=== PATIENT | male | born 1980 | race Caucasian/White ===

== ENCOUNTER 2021-05-23 17:19 | Emergency (ER) | payer SELFPAY ==
[2021-05-23 17:26] VITALS: BP 148/79; PULSE 73; RESP 20; TEMP 36.4; O2SAT 98; BMI 40.4
[2021-05-23 21:56] VITALS: BP 139/83; PULSE 63; RESP 17; O2SAT 98
--- NOTE | 2021-05-23 22:19 | ED.ALLEREA ---
HPI - Allergic Reaction General Chief complaint: Allergic Reaction Stated complaint: rash Time Seen by Provider: 05/23/21 22:19 Source: patient Mode of arrival: ambulatory Limitations: no limitations History of Present Illness HPI narrative: 40-year-old male who work outside and wear multiple layers of clothes which will get hot and sweaty becoming very itching, patient otherwise decline any change in his daily routine, no breathing issue, no change of voice, now there is no itching or rashes. No known history of eczema however runs in the family. no sick contact, no recent travel. Related Data Previous Rx's Medication Instructions Recorded prednisone 10 mg tablet 10 mg PO DAILY #7 tab 05/23/21 Allergies Allergy/AdvReac Type Severity Reaction Status Date / Time No Known Allergies Allergy Verified 05/23/21 22:19 Review of Systems Review of Systems: All other systems are reviewed and are negative Constitutional: Reports as per HPI and Reports no additional constitutional complaints Eyes: Reports as per HPI and Reports no additional eye complaints Reports system reviewed and no additional complaints, except as documented Cardiovascular: Reports as per HPI and Reports no additional cardiovascular complaints Respiratory: Reports as per HPI and Reports no additional respiratory complaints Gastrointestinal: Reports as per HPI and Reports no additional gastrointestinal complaints Genitourinary: Reports no additional female genitourinary complaints Musculoskeletal: Reports no additional musculoskeletal complaints Skin/Breast: Reports system reviewed and no additional complaints, except as docu Psychiatric: Reports no additional psychiatric complaints Endocrine: Reports no additional endocrine complaints Hematologic/Lymphatic: Reports no additional hematologic/lymphatic complaints Allergic/Immunologic: Reports no additional allergic/immunologic complaints Reports system reviewed and no additional complaints, except as documented and Reports Abnormal speech present [facility] Social History Social History Advance Directives: No Advance Directives Information Provided: No Physical Exam Vital Signs: Vital Signs: Last Vital Signs Temp 97.5 F 05/23/21 17:26 Pulse 63 05/23/21 21:56 Resp 17 05/23/21 21:56 BP 139/83 05/23/21 21:56 Pulse Ox 98 05/23/21 21:56 BMI result Body Mass Index 40.4 vital signs have been reviewed as appeared to be correct. Blood pressure normal. Heart rate normal. Respiration rate normal. Temperature normal. Oxygen saturation normal. Appearance: Alert. Oriented X3. No acute distress. Head: Normal external exam. Normocephalic. Atraumatic. No Aden signs noted. No raccoon eyes noted Eyes: PERRLA. EOMI. Conjunctiva and sclera normal. Eyelids normal. ENT: TM's Normal. Pharynx normal. Uvula midline. Moist mucous membranes. No trismus noted. No drooling noted. No muffled voice noted. Neck: Normal inspection. Neck supple. FROM. No adenopathy. Thyroid Normal. No meningeal signs. No neck mass noted. CVS: Normal heart rate and rhythm. Heart sound normal. No murmurs noted. Pulses normal throughout. Respiratory: No respiratory distress. Painless inspiration. Breath sounds normal. No wheezes/rales/rhonchi noted. Chest nontender. No accessory muscle usage noted or decreased air movement noted. Abdomen: Soft and nontender. Bowel sounds normal in all 4 quadrants. No distention noted. No organomegaly noted. No visible injury noted. Back: No CVA tenderness. Full range of motion noted. Skin: Skin warm and dry. Normal skin color. Normal skin turgor. No rashes/lesions/lacerations noted. Extremities: Fine, dry, multiple rashes on extensor surface of bilateral forearm Mostly around the extensor surface of the elbow. Neuro: Oriented X 3. Cranial nerve exam: II-XII are grossly intact No motor deficit. No sensory deficit. Reflexes normal. Course Course Course Narrative: Assessment and plan. 40-year-old male presented with itching and rashes exacerbated by heat and swelling, exam is consistent with mild eczema, will start the patient on very short course of steroid and have the patient follow-up with PCP and Dermatology. Patient used Calamine lotion [id number] which improved the patient's symptoms. Discharge Plan Discharge Clinical Impression: Contact dermatitis Qualifiers: Contact dermatitis type: irritant Contact dermatitis trigger: body fluid Patient Disposition: Home, Self-Care Instructions: Contact Dermatitis (ED) Prescriptions: New prednisone 10 mg tablet 10 mg PO DAILY Qty: 7 RF: 0 Referrals: Physician,Unknown J [Primary Care Provider] - 2 days Stand Alone Forms: Work/School Release
== END 2021-05-23 22:39 | disposition home or self-care (01) ==
PROVIDERS: Emergency Provider Emergency Medicine
DX: L24.A0 Irritant contact dermatitis due to friction or contact with body fluids, unspecified (principal)
CPT/HCPCS: 99283; 99284

== ENCOUNTER 2021-05-28 00:39 | Emergency (ER) | payer OTHER, SELFPAY ==
--- NOTE | 2021-05-28 01:00 | ED_ITS ---
HPI - Dental/Oral General Stated complaint: Dental Pain Source: patient Mode of arrival: ambulatory Limitations: no limitations History of Present Illness HPI Narrative: 40-year-old male presents with days of dental pain. Has not seen a dentist on a regular basis, has multiple caries and broken teeth. Does not report any fevers or chills, is able to eat and drink without difficulty. MD Complaint: tooth pain Teeth map: 1. 2. 3. 4. Onset (ago): day(s) Duration: constant Severity: moderate Severity scale (1-10): 6 Relieving factors: nothing Exacerbating factors: chewing, cold and heat Context: history of dental caries and poor dental care Associated symptoms: gum swelling Treatment prior to arrival: topical analgesic Related Data Previous Rx's Medication Instructions Recorded prednisone 10 mg tablet 10 mg PO DAILY #7 tab 05/23/21 amoxicillin 875 mg-potassium 1 tab PO Q12H 10 Days #20 tab 05/28/21 clavulanate 125 mg tablet (Augmentin) Allergies Allergy/AdvReac Type Severity Reaction Status Date / Time No Known Allergies Allergy Verified 05/23/21 22:19 Review of Systems Review of Systems: Constitutional: No Fever, No Chills ENT/Mouth: No swallowing difficulty, no change in voice, positive dental pain, positive jaw pain, no facial swelling Eyes: No Eye Pain, No Swelling Cardiovascular: No Chest Pain, No SOB Respiratory: No Cough, No Sputum, No Wheezing, No Smoke Exposure, No Dyspnea Gastrointestinal: No Nausea, No Vomiting, No Diarrhea Genitourinary: No Dysuria Musculoskeletal: No Myalgias Skin: No rash Neuro: No Weakness, No Numbness, No Headache Yes all other systems are reviewed and are negative [facility] Past Medical History Attestation statement: The following information was validated with the patient. Source: old records reviewed Social History Social History Advance Directives: No Advance Directives Information Provided: No Physical Exam Vital Signs: Appearance: Alert. Oriented X3. Mild distress. Eyes: Pupils equal, round and reactive to light. ENT: Pharynx normal. Multiple dental caries and broken teeth throughout. Poor dentition, gingivitis noted at multiple sites. Neck: Normal inspection. Neck supple. No cervical lymphadenopathy. No nuchal rigidity. Full range of motion. CVS: Normal heart rate and rhythm. Pulses normal. Respiratory: No respiratory distress. Breath sounds normal. Abdomen: Soft and nontender. Skin: Skin warm and dry. Normal skin color. Normal skin turgor. Extremities: No lower extremity edema. Gait well-balanced well coordinated. Neuro: No motor deficit. No sensory deficit. Cranial nerves 2-12 intact Course Course Course Narrative: 40-year-old male presents with dental pain. Multiple broken teeth, caries, and areas of gingivitis. Will give Augmentin and injection of Toradol for pain management. Patient was advised to continue to use topical analgesic as well as Tylenol and Motrin. Patient is afebrile, appears nontoxic, lung sounds clear to auscultation all lobes. Able to open and close his mouth difficulty. No cervical adenopathy. No mastoid tenderness noted. Will refer to emergency dental numbers, provide prescription and 1st dose of Augmentin. Patient verbalized understanding of and agrees to plan of care discharge home. MDM - Dental/Oral Differential Diagnosis Differential diagnosis: Likely gingival abscess, dental caries, toothache, dental abscess and fracture of tooth Medical Records Attestation: I reviewed the patient's medical records. Discharge Plan Discharge Clinical Impression: Dental caries, Tooth ache Patient Disposition: Home, Self-Care Instructions: Dental Abscess (ED), Toothache (ED) Additional Instructions: You were evaluated for dental pain. Please take Augmentin twice a day for the next 10 days. Alternate Tylenol 650 mg every 6 hours and Motrin 600 mg every 6 hours as needed for pain management. Please write down what time he take these medications to prevent accidental overdose. Please follow-up with a dentist. Thank you for choosing this emergency department for evaluation. Please follow-up with primary care physician as needed. Return to the emergency department for any new, concerning, or worsening symptoms. Prescriptions: New amoxicillin-pot clavulanate [Augmentin] 875-125 mg tablet 1 tab PO Q12H 10 Days Qty: 20 RF: 0 No Action prednisone 10 mg tablet 10 mg PO DAILY Qty: 7 RF: 0 Stand Alone Forms: Dental Emergency Numbers
[2021-05-28 01:04] VITALS: PULSE 82; RESP 18; TEMP 37.2; O2SAT 96; BMI 19.5
== END 2021-05-28 01:25 | disposition home or self-care (01) ==
PROVIDERS: Emergency Provider Emergency Medicine
DX: K02.9 Dental caries, unspecified (principal)
CPT/HCPCS: 99283

== ENCOUNTER 2022-01-23 18:34 | Emergency (ER) | payer SELFPAY ==
--- NOTE | ~2022-01-23 | XR_ITS ---
EXAMINATION: XR KNEE, LEFT CLINICAL INFORMATION: Left knee pain COMPARISON: None TECHNIQUE: Two views of the left knee. FINDINGS: There are moderate tricompartmental degenerative changes. There is a small ossific fragment overlying the anterior tibial plateau in the midline. There is a suprapatellar joint effusion. XR/XR knee LT 2V IMPRESSION: Ossific fragment overlying the anterior tibial plateau may represent a small avulsion fracture or loose body. There is a suprapatellar joint effusion. Moderate tricompartmental degenerative change.
[2022-01-23 18:43] VITALS: BP 140/80; PULSE 92; RESP 18; TEMP 36.9; O2SAT 96; BMI 36.2
--- NOTE | 2022-01-23 19:57 | ED_ITS ---
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 The patient has had pain in his left leg for some time but in the last week he has had worsened pain in his left lateral leg radiating down to his left foot. Patient has noted a little swelling in his left knee as well as in his left foot. He has also had pruritus around his left lower thigh, left knee, and left lateral leg and notes he has a rash from scratching at it. Patient notes that his left leg pain is especially bad after he has been up on the ladder. He denies any chest pain or shortness of breath. He denies any posterior calf or knee pain. Denies any fever. The patient has tried ibuprofen and acetaminophen. He notes that the pain is sometimes severe and throbbing Related Data Previous Rx's Medication Instructions Recorded prednisone 10 mg tablet 10 mg PO DAILY #7 tabs 05/23/21 amoxicillin 875 mg-potassium 1 tab PO Q12H 10 days #20 tabs 05/28/21 clavulanate 125 mg tablet (Augmentin) prednisone 20 mg tablet 40 mg PO DAILY #10 tabs 01/23/22 tramadol 50 mg tablet 50 - 100 mg PO Q4H PRN pain #20 01/23/22 tabs triamcinolone acetonide 0.1 % 1 appl topical BID #80 grams 01/23/22 topical cream Allergies Allergy/AdvReac Type Severity Reaction Status Date / Time No Known Allergies Allergy Verified 01/23/22 18:43 Review of Systems Constitutional: Constitutional: Denies fever(s) Cardiovascular: Cardiovascular: Denies chest pain and Denies dyspnea Respiratory: Respiratory: Denies dyspnea Musculoskeletal: Comments: Left leg pain Integumentary/Breasts: Comments: Pruritus and rash left leg PMFSH Past Medical History Medical History (Updated 01/23/22 @ 20:22 by Price Escamilla MD) No known health problems Social History Social History Patient Tobacco Use Status: Current everyday Tobacco user Smoked in Last 30 Days: Yes Use of substances other than those prescribed or required for medical reasons: No Advance Directives: No Advance Directives Information Provided: No Physical Exam ED Vital Signs: Vital Signs - 24 hr 01/23/22 18:43 Temperature 98.4 F Pulse Rate 92 Respiratory Rate 18 Blood Pressure 140/80 H Pulse Oximetry 96 Oxygen Delivery Method Room Air BMI result Body Mass Index 36.2 Const General: cooperative Resp Effort & Inspection: normal respiratory effort Auscultation: clear to auscultation bilaterally Cardio Rate: regular rate Rhythm: regular rhythm Heart sounds: S1 normal heart sound present and S2 normal heart sound present Skin Other: Left thigh just above the knee with excoriations and some patchy erythema with irregular borders, not cellulitic appearing. Left lateral leg with similar excoriations, no erythema. Extrem Other: Left knee with mild prepatellar effusion. No calf tenderness or swelling. Left foot with borderline swelling. Left lateral leg from the knee down to the lateral ankle with mild tenderness Medical Decision Making MDM Narrative Medical decision making narrative: Patient with pruritus on his left leg only. Patient's noted that the patient had similar findings last summer and thought he had poison abdiaziz. Patient does have excoriations and some areas of mild blotchy erythema but no other concerning rash. Patient does have mild swelling to his left knee but no erythema or warmth to the knee. X-ray did show a small suprapatellar effusion. No evidence of infection. Patient likely has an inflammatory process or osteoarthritis related to repetitive use, may also have a component of neuropathy causing his left leg symptoms given his being on the ladder and leaning his leg against the ladder while at work. Will give orthopedic follow- up. Will prescribe prednisone, tramadol, work note. He may also benefit from a topical steroid in the area of his pruritus Imaging Data Left knee x-ray: Radiologist's impression: FINDINGS: There are moderate tricompartmental degenerative changes. There is a small ossific fragment overlying the anterior tibial plateau in the midline. There is a suprapatellar joint effusion.? Discharge Plan Discharge Clinical Impression: Eczema, Osteoarthritis Patient Disposition: Home, Self-Care Instructions: Osteoarthritis (ED), Dermatitis (ED) Additional Instructions: Use the prednisone as prescribed. Use the triamcinolone topical over the itchy areas and rash as prescribed. Use tramadol for any uncontrolled pain. Try to avoid working on the ladder for the next week and generally try to rest her left knee. Return for any new or worse symptoms. Follow up with orthopedics in 1-2 weeks if not improved Prescriptions: New prednisone 20 mg tablet 40 mg PO DAILY Qty: 10 0RF triamcinolone acetonide 0.1 % cream 1 appl topical BID Qty: 80 0RF tramadol 50 mg tablet 50 - 100 mg PO Q4H PRN (Reason: pain) Qty: 20 0RF No Action prednisone 10 mg tablet 10 mg PO DAILY Qty: 7 0RF amoxicillin-pot clavulanate [Augmentin] 875-125 mg tablet 1 tab PO Q12H 10 Days Qty: 20 0RF Referrals: Uriah Chawla MD [Physician] - Stand Alone Forms: Work/School Release Interventions: ED Discharge Assessment Last Done: 01/23/22 20:58 Discharge Date/Time: 01/23/22 21:03
[2022-01-23] MEDS: traMADoL HCL 50 MG TABLET 100 MG PO (20:50)
[2022-01-23] MEDS: predniSONE 20 MG TABLET 60 MG PO (20:52)
--- NOTE | 2022-01-23 20:57 | PC.NURSE ---
medicated per provider order.
== END 2022-01-23 21:03 | disposition home or self-care (01) ==
PROVIDERS: Emergency Provider Emergency Medicine
DX: L30.9 Dermatitis, unspecified (principal); M17.12 Unilateral primary osteoarthritis, left knee; M25.462 Effusion, left knee; M79.605 Pain in left leg; F17.200 Nicotine dependence, unspecified, uncomplicated
CPT/HCPCS: 73560; 99283; 99284

== ENCOUNTER 2022-02-12 08:42 | Emergency (ER) | payer SELFPAY ==
--- NOTE | ~2022-02-12 | US_ITS ---
EXAMINATION: US VENOUS ULTRASOUND WITH DOPPLER LOWER EXTREMITY, LEFT CLINICAL INFORMATION: Left leg/calf pain and swelling COMPARISON: None TECHNIQUE: Ultrasound of the deep veins is performed from the hip to the calf with compression sonography and color and pulse Doppler assessment. Spectral analysis with color-flow imaging is performed. FINDINGS: There is normal venous compression and respiratory variation and augmented flow. The visualized common femoral vein, superficial femoral vein, profunda femoral vein, popliteal vein, and the trifurcation region shows no evidence of deep venous thrombosis. There is no significant popliteal fossa cyst. Couple of small left inguinal lymph nodes are noted, measuring less than 1 cm in short axis dimension, not pathologically enlarged. If the patient's symptoms persist, followup ultrasound in 5 days 7 days might be of value to exclude proximal propagation from a non-visualized calf vein. US/US venous duplex LE IMPRESSION: No DVT demonstrated in the left lower extremity.
--- NOTE | ~2022-02-12 | XR_ITS ---
EXAMINATION: XR KNEE, LEFT CLINICAL INFORMATION: Persistent pain of the knee, tibia and fibula. COMPARISON: 01/23/2022 TECHNIQUE: Four views of the left knee. FINDINGS: No new abnormality compared to 01/23/2022. At the medial tibiofemoral compartment, there is [id number] loss of joint space with subarticular sclerosis, osteophytosis and genu varus deformity. Moderate osteoarthritic changes also observed at patellofemoral and lateral tibiofemoral compartments. Persistent moderate knee joint effusion. A 0.6 cm intra-articular ossific body projects deep to Hoffa's fat pad. XR/XR knee LT 4V IMPRESSION: * No acute fracture or malalignment at the left knee. * Tricompartmental osteoarthritis is worst at the medial tibiofemoral compartment, and there is persistent knee joint effusion.
[2022-02-12 09:52] VITALS: BP 143/55; PULSE 55; RESP 18; TEMP 36.8; O2SAT 99; BMI 39.4
--- NOTE | 2022-02-12 12:04 | ED.EXTPRO ---
HPI - Extremity Problem General Chief complaint: Extremity Injury, Lower Stated complaint: L leg pain Time Seen by Provider: 02/12/22 10:57 Source: patient and family Mode of arrival: ambulatory Limitations: no limitations History of Present Illness HPI Narrative: 41-year-old male who denies any medical history presenting to the ER with complaints of persistent left knee pain over the past few months worse in the past few days. Reports that he was seen here in was told I have osteoarthritis . Reports that he has been using [id number] Motrin Tylenol no symptomatic relief. Reports that he fell approximately like 10 years ago and injured his left knee. he denies any recent falls, trauma, dizziness, headaches, neck pain / stiffness, trouble swallowing or breathing, chest pain or shortness of breath, dyspnea on exertion, orthopnea, palpitations, paresthesias, lower extremity edema, recent travel or sick contacts, history of DVT or PE, hypercoagulation disorder, any estrogen usage, IV drug user, recent immobilization or surgery or any other symptoms complaints or concerns at this time. MD Complaint: joint pain Onset (ago): month(s) ( Few months worse in the past few days) Pain Consistency: constant Location: left, lower extremity and knee Severity scale (1-10): >10 Quality: aching and constant Radiation: distal Relieving factors: nothing Exacerbating factors: range of motion, weight bearing, walking and palpation Associated symptoms: denies other symptoms Related Data Previous Rx's Medication Instructions Recorded prednisone 10 mg tablet 10 mg PO DAILY #7 tabs 05/23/21 amoxicillin 875 mg-potassium 1 tab PO Q12H 10 days #20 tabs 05/28/21 clavulanate 125 mg tablet (Augmentin) prednisone 20 mg tablet 40 mg PO DAILY #10 tabs 01/23/22 tramadol 50 mg tablet 50 - 100 mg PO Q4H PRN pain #20 01/23/22 tabs triamcinolone acetonide 0.1 % 1 appl topical BID #80 grams 01/23/22 topical cream naproxen 500 mg tablet 500 mg PO BID PRN pain #14 tabs 02/12/22 oxycodone 5 mg tablet 5 mg PO Q6H PRN pain #14 tabs 02/12/22 prednisone 20 mg tablet 40 mg PO DAILY inflammation 5 days 02/12/22 #10 tabs Allergies Allergy/AdvReac Type Severity Reaction Status Date / Time No Known Allergies Allergy Verified 01/23/22 18:43 Review of Systems Review of Systems: Constitutional : No Weight loss, No Fever, No Chills, No Night Sweats, No Fatigue, No Malaise ENT/Mouth : No Hearing loss, No Ear Pain, No Nasal Congestion, No Sinus Pain, No Hoarseness, No sore throat, No Rhinorrhea, No Swallowing Difficulty Eyes: No Eye Pain, No Swelling, No Redness, No Foreign Body, No Discharge, No Vision Changes Cardiovascular : No Chest Pain, No SOB, No Dyspnea on Exertion, No Orthopnea, No Edema, No Palpitations Respiratory : No Cough, No Sputum, No Wheezing, No Smoke Exposure, No Dyspnea Gastrointestinal : No Nausea, No Vomiting, No Diarrhea, No Constipation, No abdominal Pain, No Hematochezia, No Melena Genitourinary : no irregular bleeding, No Dysuria, No Urinary Frequency, No Hematuria, No Urinary Incontinence, No Urgency, No Flank Pain, No Urinary Flow Changes, No Hesitancy Musculoskeletal : + joint pain, No Myalgias, No Joint Swelling Skin : No Skin Lesions, No rash Neuro : No Weakness, No Numbness, No Paresthesias, No Loss of Consciousness, No Dizziness, No Headache Psych : No Anxiety/Panic, No Depression, No SI/HI/AH/VH, No Social Issues, Heme/Lymph: No Bruising, No Bleeding,No Lymphadenopathy Endocrine : No Polyuria, No Polydipsia, No Temperature Intolerance Yes all other systems are reviewed and are negative [facility] Past Medical History Attestation statement: The following information was validated with the patient. Source: old records reviewed, obtained from family and nursing notes reviewed Medical History No known health problems Social History Social History Patient Tobacco Use Status: Current everyday Tobacco user Advance Directives: No Advance Directives Information Provided: No Physical Exam Vital Signs: Vital Signs: Last Vital Signs Temp 98.3 F 02/12/22 09:52 Pulse 55 02/12/22 09:52 Resp 18 02/12/22 09:52 BP 143/55 H 02/12/22 09:52 Pulse Ox 99 02/12/22 09:52 O2 Del Method 02/12/22 09:52 BMI result Body Mass Index 39.4 vital signs have been reviewed as normal and appeared to be correct. Blood pressure 143/55 Heart rate normal. Respiration rate normal. Temperature normal. Oxygen saturation normal. Appearance: Alert. Oriented X3. No acute distress. Head: Normal external exam. Normocephalic. Atraumatic. Eyes: PERRLA. EOMI. Conjunctiva and sclera normal. Eyelids normal. ENT: Pharynx normal. Uvula midline. Moist mucous membranes. Normal voice. No trismus noted. No drooling noted. No muffled voice noted. Neck: Normal inspection. Neck supple. FROM. No adenopathy. Thyroid Normal. No meningeal signs. No neck mass noted. No signs of trauma noted. CVS: Normal heart rate and rhythm. Heart sound normal. Pulses normal throughout. No murmurs/rales/gallops. Respiratory: No respiratory distress. Painless inspiration. Breath sounds normal. No wheezes/rales/rhonchi noted. No accessory muscle usage noted or decreased air movement noted. Abdomen: Soft and nontender. Nondistended. No guarding. No rigidity. Bowel sounds normal in all 4 quadrants. No distention noted. No organomegaly noted. Back: Full range of motion noted. Skin: Skin warm and dry. Normal skin color. Normal skin turgor. No rashes/lesions/lacerations noted. Extremities: patient with tenderness palpation to left knee/ proximal aspect of the tibia/fibula although he has full range of motion of the left knee/ hip and ankle and foot joint. No obvious ligamentous or tendon injury noted. Not consistent with septic joint. No erythema / signs infection/ fluctuance or induration noted. Although patient does have some left calf tenderness. Patient does not have any lower extremity edema noted. Otherwise all other extremities exhibit normal range of motion nontender. Neuro: Oriented X 3. No motor deficit. No sensory deficit. Reflexes normal. Normal steady gait. No focal neuro deficits noted. CN's II-XII intact bilaterally? Vascular: + radial pulses/+ 2 distal pedal pulses/+2 dorsalis pedis b/l. Normal cap refill. No cyanosis noted to upper extremity nails and lower extremity toes nails. Course Course Course Narrative: 11am - 41-year-old male who denies any medical history presenting to the ER with complaints of persistent left knee pain over the past few months worse in the past few days. Reports that he was seen here in was told I have osteoarthritis . Reports that he has been using [id number] Motrin Tylenol no symptomatic relief. Reports that he fell approximately like 10 years ago and injured his left knee. it appears when the patient was seen here on 01/23/2022 by another provider the impression on the left knee x-ray revealed ossified fragment overlying the anterior tibial plateau may represent a small avulsion fracture or loose body along with a suprapatellar joint effusion and moderate tricompartmental degenerative changes. Although patient was never told about the possible small avulsion fracture versus loose body he was told he only had arthritis per the note/discharge paperwork. Therefore will repeat x-ray of left knee and obtain an ultrasound of left lower extremity and re-evaluate. Reevaluation(s) Reevaluation #1: - X-ray of left knee revealed arthritis. Venous duplex ultrasound of left lower extremity negative for DVT or any other acute processes. Will DC home with symptomatic treatment is plane to the patient that if he returns he most likely will not have another prescription for narcotics that this is his 1st visit that he will get narcotics although I cannot promise the next visit and I explained him that he will need to follow-up with his PCP/ pain management for further evaluation treatment. Patient understands agrees with this plan. Time: 14:40 [facility] - Extremity (Nontraumatic) Medical Records Attestation: I reviewed the patient's medical records. Imaging Data Left knee x-ray: Attestation: I personally reviewed and interpreted this imaging study as follows: Venous duplex ultrasound of left lower extremity: Attestation: I personally reviewed and interpreted this imaging study as follows: Radiologist's impression: FINDINGS: There is normal venous compression and respiratory variation and augmented flow. The visualized common femoral vein, superficial femoral vein, profunda femoral vein, popliteal vein, and the trifurcation region shows no evidence of deep venous thrombosis. ? There is no significant popliteal fossa cyst. Couple of small left inguinal lymph nodes are noted, measuring less than 1 cm in short axis dimension, not pathologically enlarged. If the patient's symptoms persist, followup ultrasound in 5 days 7 days might be of value to exclude proximal propagation from a non-visualized calf vein. US/US venous duplex LE LT IMPRESSION: No DVT demonstrated in the left lower extremity. Discharge Plan Discharge Clinical Impression: Osteoarthritis Patient Disposition: Home, Self-Care Instructions: Osteoarthritis (ED) Prescriptions: New naproxen 500 mg tablet 500 mg PO BID PRN (Reason: pain) Qty: 14 0RF oxycodone 5 mg tablet 5 mg PO Q6H PRN (Reason: pain) Qty: 14 0RF Rx Instructions: Partial Fill upon patient request. prednisone 20 mg tablet 40 mg PO DAILY 5 Days Qty: 10 0RF No Action prednisone 10 mg tablet 10 mg PO DAILY Qty: 7 0RF amoxicillin-pot clavulanate [Augmentin] 875-125 mg tablet 1 tab PO Q12H 10 Days Qty: 20 0RF prednisone 20 mg tablet 40 mg PO DAILY Qty: 10 0RF triamcinolone acetonide 0.1 % cream 1 appl topical BID Qty: 80 0RF tramadol 50 mg tablet 50 - 100 mg PO Q4H PRN (Reason: pain) Qty: 20 0RF Referrals: [facility] [place] Group] (call to make a f/u appointment ) Physician,None [Primary Care Provider] - 2 days (your pcp) Stand Alone Forms: Work/School Release
== END 2022-02-12 14:48 | disposition home or self-care (01) ==
PROVIDERS: Emergency Provider Emergency Medicine Emergency Medical Services
DX: M17.12 Unilateral primary osteoarthritis, left knee (principal); M79.605 Pain in left leg; F17.200 Nicotine dependence, unspecified, uncomplicated
CPT/HCPCS: 73564; 93971; 99282; 99283; 99284

== ENCOUNTER 2022-07-09 19:03 | Emergency (ER) | payer OTHER, SELFPAY ==
--- NOTE | ~2022-07-09 | XR_ITS ---
EXAMINATION: XR KNEE, LEFT CLINICAL INFORMATION: Left knee pain and swelling. COMPARISON: Radiograph of the left knee 02/12/2022. TECHNIQUE: Four views of the left knee. FINDINGS: No acute fracture or subluxation. Moderate tricompartmental degenerative osteoarthritis with joint space narrowing, subcortical sclerosis and marginal osteophytes more noticeable in the medial and patellofemoral compartments, not significantly changed compared to February 2022. Moderate size joint effusion. XR/XR knee LT 4V IMPRESSION: 1. No acute fracture or subluxation. 2. Moderate tricompartmental degenerative osteoarthritis. 3. Moderate size joint effusion.
--- NOTE | 2022-07-09 19:49 | ED_ITS ---
HPI - General Adult General Chief complaint: Extremity Problem <Altagracia Vasquez NP - Last Filed: 07/09/22 19:52> Stated complaint: left leg swelling and pain <Altagracia Vasquez NP - Last Filed: 07/09/22 19:52> Time Seen by Provider: 07/09/22 23:41 <Altagracia Vasquez NP - Last Filed: 07/09/22 19:52> Source: patient <DONITA Love - Last Filed: 07/10/22 01:01> Mode of arrival: ambulatory <DONITA Love - Last Filed: 07/10/22 01:01> History of Present Illness HPI narrative: This is a 42-year-old male no significant medical history presenting to the emergency department complaints of pain to the left lower extremity for the past year and half worsening over the past few months. Patient tells me that he is having severe pain in his left calf, he tells me at times it radiates down to his left foot and sometimes it goes up towards his left buttocks. He tells me that the pain is intermittent in nature. At rest it is a 5/10 however with movement and ambulation sometimes it is as bad as 12/10. He tells me has a history of arthritis has been trying [id number]-[id number] medications such as Motrin and Tylenol without relief. No known injuries or blunt trauma to the area. Patient denies numbness, tingling, fevers, chills, chest pain, shortness of breath, nausea, vomiting, headache, vision changes, dizziness, weakness. <DONITA Love - Last Filed: 07/10/22 01:01> Related Data Home medications: Previous Rx's Medication Instructions Recorded prednisone 10 mg tablet 10 mg PO DAILY #7 tabs 05/23/21 amoxicillin 875 mg-potassium 1 tab PO Q12H 10 days #20 tabs 05/28/21 clavulanate 125 mg tablet (Augmentin) prednisone 20 mg tablet 40 mg PO DAILY #10 tabs 01/23/22 tramadol 50 mg tablet 50 - 100 mg PO Q4H PRN pain #20 01/23/22 tabs triamcinolone acetonide 0.1 % 1 appl topical BID #80 grams 01/23/22 topical cream naproxen 500 mg tablet 500 mg PO BID PRN pain #14 tabs 02/12/22 oxycodone 5 mg tablet 5 mg PO Q6H PRN pain #14 tabs 02/12/22 prednisone 20 mg tablet 40 mg PO DAILY inflammation 5 days 02/12/22 #10 tabs ketorolac 10 mg tablet 10 mg PO TID PRN pain 5 days #15 07/10/22 tabs prednisone 20 mg tablet 40 mg PO DAILY 5 days #10 tabs 07/10/22 <Altagracia Vasquez NP - Last Filed: 07/09/22 19:52> Allergies/adverse reactions: Allergies Allergy/AdvReac Type Severity Reaction Status Date / Time No Known Allergies Allergy Verified 01/23/22 18:43 <Altagracia Vasquez NP - Last Filed: 07/09/22 19:52> Review of Systems Review of Systems: Constitutional : No Weight loss, No Fever, No Chills, No Fatigue, No Malaise ENT/Mouth : No sore throat, No Rhinorrhea Eyes: No Eye Pain, No Swelling, No Redness Cardiovascular : No Chest Pain, No SOB, No Dyspnea on Exertion, No Orthopnea, No Edema, No Palpitations Respiratory : No Cough, No Sputum, No Wheezing Gastrointestinal : No Nausea, No Vomiting, No Diarrhea, No Constipation, No abdominal Pain, No Hematochezia, No Melena Genitourinary : No Dysuria, No Urinary Frequency, No Hematuria, Musculoskeletal : + joint pain, No Myalgias, + Joint Swelling Skin : No Skin Lesions, No rash Neuro : No Weakness, No Numbness, No Dizziness, No Headache Psych : No Anxiety/Panic, No Depression All other systems reviewed and are negative <DONITA Love Last Filed: 07/10/22 01:01> Yes all other systems are reviewed and are negative <DONITA Love Last Filed: 07/10/22 01:01> [facility] Past Medical History Attestation statement: The following information was validated with the patient. <DONITA Love Last Filed: 07/10/22 01:01> Source: old records reviewed and nursing notes reviewed <DONITA Love Last Filed: 07/10/22 01:01> Medical History: Medical History No known health problems <Altagracia Vasquez NP - Last Filed: 07/09/22 19:52> Social History Social History: Social History Patient Tobacco Use Status: Current everyday Tobacco user Advance Directives: No <Altagracia Vasquez NP - Last Filed: 07/09/22 19:52> Physical Exam ED Vital Signs: Vital Signs - 24 hr 07/09/22 19:50 07/09/22 23:54 Temperature 98.3 F Pulse Rate 95 77 Respiratory Rate 20 20 Blood Pressure 148/87 H 126/70 Pulse Oximetry 97 96 Oxygen Delivery Method Room Air Room Air BMI result Body Mass Index 41.1 <Altagracia Vasquez NP - Last Filed: 07/09/22 19:52> Vital Signs - 24 hr 07/09/22 19:50 07/09/22 23:54 Temperature 98.3 F Pulse Rate 95 77 Respiratory Rate 20 20 Blood Pressure 148/87 H 126/70 Pulse Oximetry 97 96 Oxygen Delivery Method Room Air Room Air BMI result Body Mass Index 41.1 Vital signs stable <DONITA Love - Last Filed: 07/10/22 01:01> Appearance: Alert.? Oriented X3.? No acute distress.? Head: Normocephalic, atraumatic, no step-offs or deformities Eyes: Pupils equal, round and reactive to light.? ENT: Pharynx normal.? Neck: Normal inspection.? Neck supple.? CVS: Normal heart rate and rhythm.? Pulses normal.? Respiratory: No respiratory distress.? Breath sounds normal.? Abdomen: Soft and nontender.? Skin: Skin warm and dry.? Normal skin color.? Normal skin turgor.? Extremities: No lower extremity edema.? No calf ttp, negative Giulia bilaterally. 5/5 strength to bilateral upper and lower extremities. Full range of motion to bilateral knees, ankles. No overlying skin changes. Possible small left knee effusion. Normal right knee. 2+ popliteal pulses, dorsalis pedis, posterior tibialis and anterior tibialis pulses equal bilateral Back: No midline tenderness, no C-spine tenderness, full range of motion, no CVA tenderness bilaterally Neuro: Oriented X 3.? No motor deficit.? No sensory deficit. CN 2-12 intact <DONITA Love - Last Filed: 07/10/22 01:01> Course Course Course Narrative: This is a rapid medical exam. Deferred additional HPI, ROS, PE to primary provider. 42 yo male with no PMH here with complaints of left knee swelling/with radiation to the left calf intermittent x 1.5yrs, worsened x 1 week. Has not seen PCP. Seen here 02/2022 for same complaint with negative US/x-ray. No redness/warmth/fevers/chills. VSS <Altagracia Vasquez NP - Last Filed: 07/09/22 19:52> Reevaluation(s) Reevaluation #1: X-ray showing no acute fracture subluxation. Moderate tricompartmental degenerative osteoarthritis. Moderate size joint effusion. No overlying redness, swelling patient with full range of motion pain-free to knee therefore low suspicion for septic joint. No need for drainage at this time. Patient's main complaint is calf pain. I do not suspect DVT negative D-dimer. Wells criteria 0 points therefore low risk group for DVT a unlikely for DVT. Patient will be discharged home on Toradol and prednisone. Will have him follow-up with orthopedics. Educated patient on diagnosis and treatment plan, answered all question, patient verbalizes understanding. At this time patient will be discharged home, advised to return with new or worsening symptoms. Educated on worrisome signs and symptoms and when to return. At this time I feel comfortable discharge home. <DONITA Love - Last Filed: 07/10/22 01:01> Time: 01:00 <DONITA Love - Last Filed: 07/10/22 01:01> Medical Decision Making Medical Decision Making [facility] Narrative: [id number] 42-year-old male presents with persistent left lower extremity pain times urine half has been seen here before for similar complaint. Patient has not yet seen a specialist. Upon chart review it is noted the patient was seen here on 02/12/2022 with very similar complaint, he had a full workup all of which was negative. No DVT on venous duplex. X-ray of the left knee revealed arthritis at that time. Patient was discharged home with symptomatic treatment. He was also seen on 01/24/2020 Millie with a similar presentation. Physical examination essentially benign. Likely cramping or muscle strain or osteoarthritis. Will rule out knee effusion. Unlikely DVT, no signs of arterial occlusion. No signs of threatened limb. Plan at this time is D-dimer and x-ray <DONITA Love - Last Filed: 07/10/22 01:01> Differential Diagnosis Differential Diagnoses: The differential diagnosis associated with the presentation includes <DONITA Love - Last Filed: 07/10/22 01:01> Likely cramping or muscle strain or osteoarthritis. Will rule out knee effusion. Unlikely DVT, no signs of arterial occlusion. No signs of threatened limb. <DONITA Love - Last Filed: 07/10/22 01:01> Admission/Observation Consideration of admission/observation: Escalation of care including admission/observation considered <DONITA Love - Last Filed: 07/10/22 01:01> Not indicated <DONITA Love - Last Filed: 07/10/22 01:01> Lab Data Labs: Lab Results 07/09/22 Range/Units 23:53 D-Dimer High Sensitivty 159 NG/ML <Altagracia Vasquez NP - Last Filed: 07/09/22 19:52> Lab Results 07/09/22 Range/Units 23:53 D-Dimer High Sensitivty 159 NG/ML <DONITA Love - Last Filed: 07/10/22 01:01> Independent Interpretation I performed an independent interpretation of an: Plain X-Ray <DONITA Love - Last Filed: 07/10/22 01:01> External Record Review External record reviewed: Inpatient record, Office record, Outpatient record, Prior outpatient labs, Prior outpatient radiology, Primary care record and Outside ED record <DONITA Love - Last Filed: 07/10/22 01:01> Core Measures AMI core measures followed: Yes <DONITA Love - Last Filed: 07/10/22 01:01> Measure exclusions: not indicated <DONITA Love - Last Filed: 07/10/22 01:01> Critical Care Time Critical Care Time Critical Care Time: No <DONITA Love Last Filed: 07/10/22 01:01> Discharge Plan Discharge Clinical Impression: Left leg pain <Altagracia Vasquez NP - Last Filed: 07/09/22 19:52> Patient Disposition: Home, Self-Care <Altagracia Vasquez NP - Last Filed: 07/09/22 19:52> Instructions: Leg Pain (ED) <Altagracia Vasquez NP - Last Filed: 07/09/22 19:52> Additional Instructions: Take your medications as prescribed. If you were prescribed antibiotics today, it is important that you take your medication to their entirety, do not skip any doses, do not finish them early. Follow-up with your primary care provider this week. He should follow up with the orthopedic team this appears to be a chronic issue. Return to the emergency department with new or worsening symptoms. Such as fevers, chills, chest pain, shortness of breath, nausea, vomiting, dizziness, headache, vision changes, lethargy In case of emergency call 911 Toradol has been sent to your pharmacy, you tolerated this well in the department. Please take this as prescribed do not take this with ibuprofen, or other NSAIDs, do not mix this with alcohol. Side effects of this medication including increased risk for bleeding and possible kidney injury. XR/XR knee LT 4V IMPRESSION: 1.? No acute fracture or subluxation. 2.? Moderate tricompartmental degenerative osteoarthritis. 3.? Moderate size joint effusion. ? <Altagracia Vasquez NP - Last Filed: 07/09/22 19:52> Prescriptions: New prednisone 20 mg tablet 40 mg PO DAILY 5 Days Qty: 10 0RF ketorolac 10 mg tablet 10 mg PO TID PRN (Reason: pain) 5 Days Qty: 15 0RF Rx Instructions: Tolerated IM in the department No Action prednisone 10 mg tablet 10 mg PO DAILY Qty: 7 0RF amoxicillin-pot clavulanate [Augmentin] 875-125 mg tablet 1 tab PO Q12H 10 Days Qty: 20 0RF prednisone 20 mg tablet 40 mg PO DAILY Qty: 10 0RF triamcinolone acetonide 0.1 % cream 1 appl topical BID Qty: 80 0RF tramadol 50 mg tablet 50 - 100 mg PO Q4H PRN (Reason: pain) Qty: 20 0RF naproxen 500 mg tablet 500 mg PO BID PRN (Reason: pain) Qty: 14 0RF oxycodone 5 mg tablet 5 mg PO Q6H PRN (Reason: pain) Qty: 14 0RF Rx Instructions: Partial Fill upon patient request. prednisone 20 mg tablet 40 mg PO DAILY 5 Days Qty: 10 0RF <Altagracia Vasquez NP - Last Filed: 07/09/22 19:52> [place] [facility] [place] [facility] [place]Provider Group] - 2 days <Altagracia Vasquez NP - Last Filed: 07/09/22 19:52> Stand Alone Forms: Work/School Release <Altagracia Vasquez NP - Last Filed: 07/09/22 19:52>
[2022-07-09 19:50] VITALS: BP 148/87; PULSE 95; RESP 20; TEMP 36.8; O2SAT 97; BMI 41.1
[2022-07-09 23:54] VITALS: BP 126/70; PULSE 77; RESP 20; O2SAT 96
[2022-07-10 00:11] LABS: D Dimer High Sensitivity 159 NG/ML
[2022-07-10] MEDS: Ketorolac Tromethamine 15 MG/ML VIAL 30 MG IM (01:42)
== END 2022-07-10 01:48 | disposition home or self-care (01) ==
PROVIDERS: Physician Assistant; Emergency Provider Emergency Medicine
DX: R60.0 Localized edema (principal); M79.605 Pain in left leg; Z79.899 Other long term (current) drug therapy
CPT/HCPCS: 36415; 73564; 85379; 96372; 99284; J1885

== ENCOUNTER 2023-06-12 21:07 | Emergency (ER) | payer OTHER, SELFPAY ==
[2023-06-12 21:16] VITALS: BP 145/89; PULSE 74; RESP 18; TEMP 36.7; O2SAT 96; BMI 41.7
[2023-06-12 22:18] VITALS: BP 130/69; PULSE 66; RESP 16; O2SAT 95
--- NOTE | 2023-06-12 22:36 | ED.EXTPRO ---
HPI - Extremity Problem General Chief complaint: Extremity Injury, Lower Stated complaint: R knee pain and L leg pain Time Seen by Provider: 06/12/23 22:19 Source: patient Mode of arrival: ambulatory Limitations: no limitations History of Present Illness HPI Narrative: 42 yo male with longstanding arthritis he is supposed to follow up with orthopedics but doesn't have a PCP and needs a referral per insurance through UC or ED - he has no fevers, has had to have arthrocentesis before. He denies new injury MD Complaint: joint swelling and joint pain Onset (ago): month(s) Pain Consistency: intermittent Location: left, right and knee Quality: aching and constant Radiation: none Relieving factors: rest Exacerbating factors: range of motion, walking, exertion and palpation Associated symptoms: denies other symptoms Context: other (chronic worse at work and in winter) Related Data Previous Rx's Medication Instructions Recorded prednisone 10 mg tablet 10 mg PO DAILY #7 tabs 05/23/21 amoxicillin 875 mg-potassium 1 tab PO Q12H 10 days #20 tabs 05/28/21 clavulanate 125 mg tablet (Augmentin) prednisone 20 mg tablet 40 mg (2 x 20 mg) PO DAILY #10 tabs 01/23/22 tramadol 50 mg tablet 50 - 100 mg (1 - 2 x 50 mg) PO Q4H 01/23/22 PRN pain #20 tabs triamcinolone acetonide 0.1 % 1 appl topical BID #80 grams 01/23/22 topical cream naproxen 500 mg tablet 500 mg PO BID PRN pain #14 tabs 02/12/22 oxycodone 5 mg tablet 5 mg PO Q6H PRN pain #14 tabs 02/12/22 prednisone 20 mg tablet 40 mg (2 x 20 mg) PO DAILY 02/12/22 inflammation 5 days #10 tabs ketorolac 10 mg tablet 10 mg PO TID PRN pain 5 days #15 07/10/22 tabs prednisone 20 mg tablet 40 mg (2 x 20 mg) PO DAILY 5 days 07/10/22 #10 tabs cyclobenzaprine 10 mg tablet 10 mg PO TID PRN muscle spasm #20 06/12/23 tabs diclofenac sodium 1 % topical gel 2 g topical QID #100 grams 06/12/23 (Voltaren Arthritis Pain) hydrocodone 5 mg-acetaminophen 325 1 tab PO Q6H PRN pain #10 tabs 06/12/23 mg tablet Allergies Allergy/AdvReac Type Severity Reaction Status Date / Time No Known Allergies Allergy Verified 06/12/23 21:16 Review of Systems Review of Systems: Constitutional : No Fever, No Chills Cardiovascular : No Chest Pain, No SOB Respiratory : No Cough, No Dyspnea Gastrointestinal : No Nausea, No Vomiting, No Diarrhea, No abdominal Pain Genitourinary : No Dysuria, No Hematuria Musculoskeletal : positive joint pain, No Myalgias, pos Joint Swelling Skin : No Skin lacerations, No rash Neuro : No Weakness, No Numbness, No Loss of Consciousness, No Dizziness, No Headache Psych : No Anxiety/Panic, No Depression All other systems reviewed and are negative PMFSH Past Medical History Source: old records reviewed Onset Date is defined in the Problem List Problems that require an onset date and time if occurred within 24 hrs of arrival to the ED Aortic Dissection and Rupture; Neurologic impairment; Cardiopulmonary Arrest; Endotracheal Intubation; Insertion or Replacement of Mechanical Circulatory Assist Device Medical History No known health problems Social History Social History Patient Tobacco Use Status: Current everyday Tobacco user Advance Directives: No Advance Directives Information Provided: No Physical Exam Vital Signs: Vital Signs: Last Vital Signs Temp 98.1 F 06/12/23 21:16 Pulse 66 06/12/23 22:18 Resp 16 06/12/23 22:18 BP 130/69 06/12/23 22:18 Pulse Ox 95 06/12/23 22:18 O2 Del Method Room Air 06/12/23 22:18 BMI result Body Mass Index 41.7 Appearance: Alert. Oriented X3. No acute distress. Eyes: Pupils equal, round and reactive to light. ENT: Pharynx normal. Neck: Normal inspection. Neck supple. CVS: Normal heart rate and rhythm. Pulses normal. Respiratory: No respiratory distress. Breath sounds normal. Abdomen: Soft and nontender. Skin: Skin warm and dry. Normal skin color. Normal skin turgor. Extremities: No lower extremity edema. both knees not red not hot to touch has small joint effusions distal NV intact, no calf pain other joints are normal Neuro: Oriented X 3. No motor deficit. No sensory deficit. Medical Decision Making Medical Decision Making MDM Narrative: 42 yo male with chronic knee pain here with c/o worsening arthralgia - normal exam - distal NV intact, no other joint swelling, no fevers, redness, warmth to suggest septic joint this is longstanding suspect osteoarthritis will start on medications and refer to orthopedics we did discuss weight management as well. Differential Diagnosis Differential Diagnoses: The differential diagnosis associated with the presentation includes arthritis, effusion, MSK pain Independent Interpretation I performed an independent interpretation of an: Plain X-Ray Radiology Impression Discussion of test interpretation with radiology: I have reviewed the radiologist's reading. Independent Historian Clinical information obtained from an independent historian. History obtained from or confirmed by: Spouse External Record Review External record reviewed: Office record Prescription Management I considered prescription management with: Pain Medication and Other Discharge Plan Discharge Clinical Impression: Arthritis of knee Patient Disposition: Home, Self-Care Instructions: Osteoarthritis (ED) Additional Instructions: your xrays show arthritis of both knees you need to see an orthopedic doctor. please call our orthopedic clinic for follow up and management XR/XR knee LT 2V IMPRESSION: 1. No acute fractures or malalignment. 2. Moderate to severe degenerative osteoarthritis in the medial compartments of both knees. 3. Moderate degenerative osteoarthritis of the left greater than right patellofemoral compartments. 4. Small bilateral joint effusions. Prescriptions: New cyclobenzaprine 10 mg tablet 10 mg PO TID PRN (Reason: muscle spasm) Qty: 20 0RF Rx Instructions: cannot drink or operate heavy machinery on this diclofenac sodium [Voltaren Arthritis Pain] 1 % gel 2 g topical QID Qty: 100 0RF Rx Instructions: apply to single elbow, wrist or hand; for hand includes palm/fingers/back of hand hydrocodone-acetaminophen 5-325 mg tablet 1 tab PO Q6H PRN (Reason: pain) Qty: 10 0RF Rx Instructions: partial fill okay; Partial Fill upon patient request. No Action prednisone 10 mg tablet 10 mg PO DAILY Qty: 7 0RF amoxicillin-pot clavulanate [Augmentin] 875-125 mg tablet 1 tab PO Q12H 10 Days Qty: 20 0RF prednisone 20 mg tablet 40 mg PO DAILY Qty: 10 0RF triamcinolone acetonide 0.1 % cream 1 appl topical BID Qty: 80 0RF tramadol 50 mg tablet 50 - 100 mg PO Q4H PRN (Reason: pain) Qty: 20 0RF naproxen 500 mg tablet 500 mg PO BID PRN (Reason: pain) Qty: 14 0RF oxycodone 5 mg tablet 5 mg PO Q6H PRN (Reason: pain) Qty: 14 0RF Rx Instructions: Partial Fill upon patient request. prednisone 20 mg tablet 40 mg PO DAILY 5 Days Qty: 10 0RF prednisone 20 mg tablet 40 mg PO DAILY 5 Days Qty: 10 0RF ketorolac 10 mg tablet 10 mg PO TID PRN (Reason: pain) 5 Days Qty: 15 0RF Rx Instructions: Tolerated IM in the department Referrals: Trista Pimentel PA-C [Physician [id number]] - 1 week (call to schedule appointment )
--- NOTE | 2023-06-12 23:25 | PC.NURSE ---
This RN assisted with Discharge instruction, pt verbalized understanding, no sign of distress.
[2023-06-12 23:33] VITALS: BP 142/76; PULSE 65; RESP 18; TEMP 36.9; O2SAT 98
== END 2023-06-12 23:27 | disposition home or self-care (01) ==
PROVIDERS: Emergency Provider Emergency Medicine
DX: M17.11 Unilateral primary osteoarthritis, right knee (principal); M25.562 Pain in left knee; M25.561 Pain in right knee
CPT/HCPCS: 73560; 99283

== ENCOUNTER 2023-07-06 09:54 | Outpatient (AMB) | payer OTHER, SELFPAY ==
--- NOTE | 2023-07-06 10:00 | MHC.OFFVIS ---
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 right Knee is worse. Pateint reports that he moved from [place] and ever since moving he has pain in the knees only in the winter time. His pain is worsened with cold weather, walking on uneven ground and walking down stairs. He takes tylenol for his pain which does not help. 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 He complains of pain primarily during the winter months. He also has pain when walking on uneven ground or descending stairs. He finds no pain relief from Tylenol. [facility] Medical History No known health problems Social History Patient Tobacco Use Status: Current everyday Tobacco user Current occupational status: employed Current occupation: [employer] Review of Systems Const All systems reviewed & are unremarkable except as noted in HPI and below Physical Exam Const General: no acute distress, alert and awake Orientation/consciousness: patient oriented x3 HEENT Head: Yes normocephalic and Yes atraumatic Eyes EOM: EOMs intact bilaterally Resp Effort & Inspection: normal respiratory effort and able to speak in complete sentences Cardio Jugular venous distension: no JVD Skin General skin exam: turgor normal Rashes: no rashes Neuro General: patient oriented x3 Extrem Other: Right knee medial compartment ttp varus alignement antaglic gat 0-125 Psych Appearance: grossly normal Affect: normal affect Attitude: cooperative Results Reviewed Results Reviewed: I personally reviewed relevant radiographs. Severe bilateral knee OA, varus pattern Assessment & Plan Assessment & Plan (1) Arthritis of both knees: Code(s): M17.0 - Bilateral primary osteoarthritis of knee Plan: Bilateral knee OA right symptomatic Injected right knee Meloxicam PT/gym f/u 3 months Plan Prepared for Uriah Chawla MD by Doug Smith, medical staff assistant, on 07/06/23 at 10:05 AM, EST. Medications: New meloxicam 15 mg PO DAILY 30 tabs 3RF Coding Level of Care Code New Pt Level 3 (87714) Diagnoses Arthritis of both knees M17.0
== END 2023-07-06 11:23 | disposition home or self-care (01) ==
PROVIDERS: Visit Provider Orthopaedic Surgery
DX: M17.0 Bilateral primary osteoarthritis of knee (principal)
CPT/HCPCS: 20610; 99204

== ENCOUNTER → 2023-07-06 09:54 | Outpatient (BNVA) | payer OTHER, SELFPAY | PROVIDERS: Visit Provider Orthopaedic Surgery | DX: M17.0 Bilateral primary osteoarthritis of knee (principal) | CPT/HCPCS: 20610; 99202; J0665; J1100 ==

== ENCOUNTER 2023-07-10 08:10 | Outpatient (AMB) | payer OTHER, SELFPAY ==
[2023-07-10 08:14] VITALS: BP 120/80; PULSE 90; TEMP 36.7; O2SAT 96; BMI 42.8
--- NOTE | 2023-07-10 08:14 | AM.OFFWIN_ITS ---
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 Pt c/o rash on both of his knees. He has been rubbing liquid Benadrly. He did receive his first Cortisone injection Thursday. He has Osteoarthritis. [facility] Medical History No known health problems Social History (Updated 07/06/23 @ 10:07 by Sandra Thayer [facility]) Patient Tobacco Use Status: Current everyday Tobacco user Current occupational status: employed Current occupation: [employer] Review of Systems Const All systems reviewed & are unremarkable except as noted in HPI and below Physical Exam Vital Signs: Last Vital Signs Temp 98.1 F 07/10/23 08:14 Pulse 90 07/10/23 08:14 BP 120/80 07/10/23 08:14 Pulse Ox 96 07/10/23 08:14 Oxygen Delivery Method Room Air 07/10/23 08:14 BMI result Body Mass Index 42.8 Const General: comfortable and no acute distress Nutritional Appearance: obese Skin Rashes: rashes noted (Anterior Chirag Knees. Red pinpoint rash ) Extrem General: Yes full ROM and Yes no joint enlargement Right lower extremity: full ROM and knee Details: swelling Location: of the patella; no tenderness Left lower extremity: edema and knee Details: swelling Assessment & Plan Assessment & Plan (1) Arthritis of both knees: Code(s): M17.0 - Bilateral primary osteoarthritis of knee Plan: - F/u with Ortho (2) Contact dermatitis: Code(s): L25.9 - Unspecified contact dermatitis, unspecified cause Qualifiers: Contact dermatitis trigger: unspecified trigger Contact dermatitis type: irritant Qualified Code(s): L24.9 - Irritant contact dermatitis, unspecified cause Plan: - Prob local reaction to steroid - Topical Steroid. - May take Benadrly otc oral Medications: New triamcinolone acetonide 0.025% 1 appl topical BID 80 grams 0RF L24.9 - Irritant contact dermatitis, unspecified cause Coding Level of Care Code Est Pt Level 3 (58926) Diagnoses Arthritis of both knees M17.0 Irritant contact dermatitis, unspecified trigger L24.9 Contact dermatitis trigger: unspecified trigger Contact dermatitis type: irritant Time Spent (min) 15
== END 2023-07-10 08:46 | disposition home or self-care (01) ==
PROVIDERS: Visit Provider Nurse Practitioner Family
DX: M17.0 Bilateral primary osteoarthritis of knee (principal); L24.9 Irritant contact dermatitis, unspecified cause
CPT/HCPCS: 99213

== ENCOUNTER 2023-07-14 08:45 | Emergency (ER) | payer OTHER, SELFPAY ==
[2023-07-14 08:53] VITALS: BP 159/71; PULSE 71; RESP 20; TEMP 36.9; O2SAT 98; BMI 44.6
--- NOTE | 2023-07-14 10:51 | ED_ITS ---
HPI - Skin/Abscess/Foreign Bdy General Chief complaint: Skin/Abscess/Foreign Body Stated complaint: Rash on Stomach Area Time Seen by Provider: 07/14/23 10:46 Source: patient Mode of arrival: ambulatory Limitations: no limitations History of Present Illness HPI narrative: 43 year old male with pmhx significant for osteoarthritis presents to the ED today for evaluation of diffuse body rash x2 weeks. Reports rash beginning on his legs bilaterally, now spreading to upper thigh, torso, and bilateral upper extremities. Endorses itching. Admits he was evaluated at [facility] 1.5 weeks ago, discharged home with triamcinolone which has not been improving his symptoms. Admits to having corticosteroid injection in both knees by ortho 1 week ago, prior to rash. Rash did not worsen with injection. Reports starting meloxicam by his orthopedist on 07/06/23 however cannot recall if rash was present prior to starting this. Denies new detergents, soaps, lotions. Denies fever, chills, N/V, dysuria, hematuria, penile discharge. Related Data Previous Rx's Medication Instructions Recorded amoxicillin 875 mg-potassium 1 tab PO Q12H 10 days #20 tabs 05/28/21 clavulanate 125 mg tablet (Augmentin) triamcinolone acetonide 0.025 % 1 appl topical BID #80 grams 07/10/23 topical cream diphenhydramine HCl 25 mg tablet 25 mg PO BEDTIME PRN itching #20 07/14/23 (Benadryl Allergy) tabs prednisone 20 mg tablet 20 mg PO BID #5 tabs 07/14/23 Allergies Allergy/AdvReac Type Severity Reaction Status Date / Time No Known Allergies Allergy Verified 07/14/23 08:57 Review of Systems 2 Review of Systems: Constitutional: No fever, chills, fatigue, night sweats, weight changes ENT/Mouth: No ear pain, hearing loss, nasal congestion, sinus pain, rhinorrhea, sore throat Eyes: No eye pain, swelling, redness, vision changes, discharge Cardio: No chest pain, palpitations, JENSEN, orthopnea, peripheral edema Pulm: No SOB, cough, sputum, wheezing, dyspnea, hemoptysis GI: No nausea, vomiting, hematemesis, abdominal pain, diarrhea, constipation, hematochezia, melena : No irregular bleeding, dysuria, frequency, urgency, hesitancy, hematuria, flank pain, urinary flow changes, urinary incontinence or retention MSK: No back pain, neck pain, joint pain, myalgias Skin: No lesions, +rash Neuro: No weakness, numbness, paresthesias, LOC, dizziness, headache All other systems reviewed and are negative. [facility] Past Medical History Attestation statement: The following information was validated with the patient. Source: old records reviewed and nursing notes reviewed Medical History No known health problems Social History Social History Patient Tobacco Use Status: Current everyday Tobacco user Advance Directives: No Current occupational status: employed Current occupation: [employer] Physical Exam 2 Vital Signs: Vital Signs: Last Vital Signs Temp 98.0 F 07/14/23 15:07 Pulse 71 07/14/23 08:53 Resp 70 H 07/14/23 15:07 BP 142/73 H 07/14/23 15:07 Pulse Ox 97 07/14/23 15:07 O2 Del Method Room Air 07/14/23 15:07 BMI result Body Mass Index 44.6 Patient hypertensive, vitals otherwise WNL. Const: General: cooperative, healthy appearing, comfortable, no acute distress, alert and awake Orientation/consciousness: patient oriented x3 L imitations: no limitations Eyes: General: appearance normal, both eyes and all related structures C onjunctivae: conjunctivae normal Sclerae: sclerae normal Pupils: Equal, round and reactive pupils present Neck: Neck: Yes normal visual inspection, Yes full ROM and Yes no lymphadenopathy Resp: Effort & Inspection: normal respiratory effort and able to speak in complete sentences Auscultation: clear to auscultation bilaterally Cardio: Rate: regular rate Rhythm: regular rhythm Peripheral pulses: P eripheral pulses 2+ throughout GI: Inspection: Yes normal to inspection Palpation (GI): Soft to palpation, nontender and no guarding Skin: Other: + please refer to photos of abdomen belo w + small raised pustular lesions on an er ythematous base with excoriations covering torso, lower extremities and upper extremities. No sloughing. Not in dermatomal pattern. Spares web spaces. Spares palms, soles, mucous membranes. No petechia or purpura. General skin exam: no jaundice, no petechiae and no purpura Neuro: General: patient oriented x3, gait normal and moves all extremities Cranial nerves: Yes Equal, round and reactive pupils present Extrem: General: Yes normal to inspection and Yes full ROM Course Course Course Narrative: 1237-- CBC showing anemia, H&H 13.6/40.4, eosinophilia to 0.6. Inflammatory markers elevated. Liver function WNL. Renal function WNL. Chemistry without acute electrolyte abnormality requiring intervention. UA without infection. Discussed case with my attending physician, Dr. Uribe, who upon viewing photos of rash, agrees with possible drug reaction. Will advise patient to discontinue the meloxicam. Informed patient of all work up results. > patient receiving Pepcid, solumedrol, and Benadryl in ED. Will re-evaluate. 2-- On re-evaluation, patient reports improvement in itching with medications. Upon examining his skin, erythema has improved. I have very low suspicion for hemolytic anemia as rash is more pustular. There is no purpura or petechiae. I advised patient to discontinue meloxicam. Will send prednisone and Benadryl to pharmacy for rash. Provided him with a referral to a adjunct english instructor and advised him to follow up with his PCP. Discussed worrisome signs and symptoms and when to return to the ED. All questions answered at this time. Patient is agreeable with disposition and stable for discharge. Medications Administered Discontinued Medications Generic Name Dose Route Start Last Admin Trade Name Freq PRN Reason Stop Dose Admin Diphenhydramine HCl 50 mg 07/14/23 12:36 07/14/23 12:58 Diphenhydramine Hcl 25 Mg Capsule PO 07/14/23 12:37 50 mg ONCE ONE Administration Famotidine 20 mg 07/14/23 12:36 07/14/23 12:58 Famotidine 20 Mg Tablet PO 07/14/23 12:37 20 mg ONCE ONE Administration Methylprednisolone Sodium Succinate 60 mg 07/14/23 12:36 07/14/23 12:59 Methylprednisolone Sod Succ 125 Mg/2 Ml Vial IM 07/14/23 12:37 60 mg ONCE ONE Administration Medical Decision Making Medical Decision Making [facility] Narrative: 43 year old male with pmhx significant for osteoarthritis presents to the ED today for evaluation of diffuse body rash x2 weeks. On skin exam, there are small raised pustular lesions on an erythematous base with excoriations covering torso, lower extremities and upper extremities. No sloughing. Not in dermatomal pattern. Spares web spaces. Spares palms, soles, mucous membranes. No petechia or purpura. Clinical concern for dermatitis, allergic reaction, medication reaction. Lower suspicion for hemolytic anemia. Unlikely SJS/TEN, scabies, herpes simplex/zoster, hand/foot/mouth, measles. Plan for basic labs, meds, re- evaluation. Differential Diagnosis Differential Diagnoses: The differential diagnosis associated with the presentation includes As above. Admission/Observation Not indicated. Lab Data MDM Lab Attestation statement: I reviewed the patient's lab results. As above. 07/14/23 11:25 07/14/23 11:25 Labs: Lab Results 07/14/23 07/14/23 07/14/23 Range/Units 11:25 13:05 13:06 WBC 9.9 (4.8-10.8) X10*3/uL RBC 4.30 L (4.60-5.80) X10*6/uL Hgb 13.6 L (14.0-18.0) g/dl Hct 40.4 L (42.0-52.0) % MCV 94.0 (80.0-98.0) fL MCH 31.6 (27.0-33.0) pg MCHC 33.7 (31.0-36.0) g/dl RDW 13.0 (11.0-16.0) % Plt Count 270 (160-400) X10*3/uL MPV 9.6 (9.4-12.4) fL Immature Gran % (Auto) 0.4 (0.0-0.4) % Neut % (Auto) 65.4 (45-73) % Lymph % (Auto) 20.3 (20-40) % [place] % (Auto) 7.6 (2-11) % Eos % (Auto) 6.0 H (0-4) % Baso % (Auto) 0.3 (0-2) % Lymph # (Auto) 2.0 (1.2-4.9) X10*3/uL [place] # (Auto) 0.8 (0.1-1.2) X10*3/uL Eos # (Auto) 0.6 H (0.0-0.4) X10*3/uL Baso # (Auto) 0.0 (0.0-0.2) X10*3/uL Abs Immat Gran (auto) 0.04 H (0.00-0.03) X10*3/uL Absolute Neuts (auto) 6.5 (2.0-8.3) x10*3/uL Absolute Nucleated RBC 0.000 (0.0-0.012) X10*3/uL Nucleated RBC % (auto) 0.0 (0.0-0.2) /100WBC ESR 31 H (0-15) MM/HR Sodium 140 (135-145) mmol/L Potassium 3.9 (3.3-5.1) mmol/L Chloride 105 (96-108) mmol/L Carbon Dioxide 28 (22-29) mmol/L Anion Gap 11 L (12-20) BUN 10 (9-16) mg/dL Creatinine 0.74 (0.5-1.4) mg/dL Estim Creat Clear Calc 189.9 Estimated GFR > 60 Random Glucose 162 H (60-115) mg/dL Calcium 9.5 (8.4-10.2) mg/dL Magnesium 1.8 (1.6-2.6) mg/dL Total Bilirubin 0.4 (0.0-1.0) mg/dL AST 32 (5-37) U/L ALT 59 H (0-40) U/L Alkaline Phosphatase 101 (39-117) U/L C-Reactive Protein 2.58 H (< or = 0.50) mg/dL Total Protein 7.5 (6.5-8.0) g/dL Albumin 3.8 (3.5-5.0) g/dL Lipase 36 (8-78) U/L Urine Color Dark Yellow Urine Appearance Clear Urine pH 5.5 (5.0-9.0) Ur Specific [place] 1.025 (1.005-1.025) Urine Protein Negative (Neg-Trace) mg/dL Urine Glucose (UA) Negative (Negative) mg/dL Urine Ketones Negative (Negative) mg/dL Urine Blood Negative (Negative) Urine Nitrite Negative (Negative) Ur Leukocyte Esterase Negative (Negative) Chlam trachomat DNA PCR NOT DETECTED (Not Detect.) N.gonorrhoeae DNA (PCR) NOT DETECTED (Not Detect.) External Record Review External record reviewed: Inpatient record Prescription Management I considered prescription management with: Pain Medication and Other (Antihistamine, steroid) Social Determinants Patient?s care significantly limited by Social Determinants of Health including: Other Social Determinant of Health Critical Care Time Critical Care Time Critical Care Time: No Discharge Plan Discharge Clinical Impression: Pruritic erythematous rash Patient Disposition: Home, Self-Care Instructions: Prednisone (By mouth), Diphenhydramine (By mouth), Itchy Skin (ED) Additional Instructions: Your labs today are reassuring. There is not a clear etiology for this rash. STOP TAKING THE MELOXICAM. This may be a reaction to this as you recently started this. You may take tylenol or ibuprofen instead. Prednisone is a steroid that has been sent to your pharmacy. Take this twice daily for the next 5 days. Benadryl is an antihistamine that helps with itching/ rash. You received a dose of this in the ED today and tolerated it well. Take this as needed for itching. This may make you drowsy. Do not drink, drive or operate heavy machinery while taking this. You have been provided with a referral to a adjunct english instructor (skin doctor). You may call them to make an appointment. They will not call you. If symptoms persist or worsen, please return to the ED. In the case of emergency call 911. [facility]: [phone] Prescriptions: New prednisone 20 mg tablet 20 mg PO BID Qty: 5 0RF diphenhydramine HCl [Benadryl Allergy] 25 mg tablet 25 mg PO BEDTIME PRN (Reason: itching) Qty: 20 0RF No Action amoxicillin-pot clavulanate [Augmentin] 875-125 mg tablet 1 tab PO Q12H 10 Days Qty: 20 0RF triamcinolone acetonide 0.025 % cream 1 appl topical BID Qty: 80 0RF Referrals: Livia Garcia PA-C [Physician Transonic Engineer] - Lu Meadows PA [Physician Transonic Engineer] - Stand Alone Forms: Work/School Release Interventions: ED Discharge Assessment Last Done: 07/14/23 15:07 Discharge Date/Time: 07/14/23 15:07
[2023-07-14 11:29] LABS: MANUAL DIFF FLAG NO
[2023-07-14 11:41] LABS: Basophils Percent Auto 0.3 % (0-2); Eosinophils Absolute Auto 0.6 X10*3/uL (0.0-0.4); Hematocrit 40.4 % (42.0-52.0); Hemoglobin 13.6 g/dl (14.0-18.0); Imm Gran Abs Auto 0.04 X10*3/uL (0.00-0.03); Imm Gran Pct Auto 0.4 % (0.0-0.4); Lymphocytes Percent Auto 20.3 % (20-40); Mean Corpuscular HGB Conc 33.7 g/dl (31.0-36.0); Mean Corpuscular Hemoglobin 31.6 pg (27.0-33.0); Mean Platelet Volume 9.6 fL (9.4-12.4); Monocytes Absolute Auto 0.8 X10*3/uL (0.1-1.2); Monocytes Percent Auto 7.6 % (2-11); Neutrophils Absolute Auto 6.5 x10*3/uL (2.0-8.3); Neutrophils Percent Auto 65.4 % (45-73); Platelet Count 270 X10*3/uL (160-400); White Blood Count 9.9 X10*3/uL (4.8-10.8)
[2023-07-14 11:46] LABS: Alanine Aminotransferase 59 U/L (0-40); Albumin Level 3.8 g/dL (3.5-5.0); Alkaline Phosphatase 101 U/L (39-117); Anion Gap 11 (12-20); Aspartate Amino Transferase 32 U/L (5-37); Bilirubin Total 0.4 mg/dL (0.0-1.0); Blood Urea Nitrogen 10 mg/dL (9-16); C Reactive Protein 2.58 mg/dL (< or = 0.50); Calcium 9.5 mg/dL (8.4-10.2); Carbon Dioxide 28 mmol/L (22-29); Chloride 105 mmol/L (96-108); Creatinine Clr Calc Pharmacy 189.9; Estimated Glomerular Filt Rate > 60; Glucose Random 162 mg/dL (60-115); Lipase 36 U/L (8-78); Magnesium 1.8 mg/dL (1.6-2.6); Potassium 3.9 mmol/L (3.3-5.1); Sodium 140 mmol/L (135-145); Total Protein 7.5 g/dL (6.5-8.0)
[2023-07-14 12:16] LABS: Erythrocyte Sedimentation Rate 31 MM/HR (0-15)
[2023-07-14] MEDS: Famotidine 20 MG TABLET PO (12:58)
[2023-07-14] MEDS: diphenhydrAMINE HCL 25 MG CAPSULE 50 MG PO (12:58)
[2023-07-14] MEDS: methylPREDNISolone Sod Succ 125 MG/2 ML VIAL 60 MG IM (12:59)
[2023-07-14 13:13] LABS: Appearance Urine Clear; Color Urine Dark Yellow; Glucose Urine UA Negative (Negative); Leukocyte Esterase Urine Negative (Negative); Nitrite Urine Negative (Negative); PH 5.5 (5.0-9.0); Specific Gravity - Urine 1.025 (1.005-1.025); Urine Blood Negative (Negative); Urine Ketones Negative (Negative); Urine Protein Negative (Neg-Trace)
[2023-07-14 14:40] LABS: CT PCR NOT DETECTED (Not Detect.); NG PCR NOT DETECTED (Not Detect.)
[2023-07-14 15:07] VITALS: BP 142/73; RESP 70; TEMP 36.7; O2SAT 97
== END 2023-07-14 15:07 | disposition home or self-care (01) ==
PROVIDERS: Physician Assistant Medical; Emergency Provider Emergency Medicine
DX: L29.9 Pruritus, unspecified (principal); L53.9 Erythematous condition, unspecified; R21 Rash and other nonspecific skin eruption; Z72.89 Other problems related to lifestyle
CPT/HCPCS: 0353U; 36415; 80053; 81003; 83690; 83735; 85025; 85652; 86140; 96372; 99283; 99284; J2930

== ENCOUNTER 2023-08-07 09:48 | Outpatient (AMB) | payer OTHER, SELFPAY ==
[2023-08-07 09:50] VITALS: BMI 44.6
--- NOTE | 2023-08-07 09:50 | A.OFFVIS_ITS ---
Intake Vital Signs 08/07/23 09:50 Height 5 ft 11 in Weight 320 lb BMI 44.6 Intake Visit Reasons: ov- Bilateral Knee OA last 07/06/23 Intake Note: Carlos is a 43 year old male who presents today for a follow up of his bilateral knee OA. Right worse than left. The right knee was injected on 07/06/23, at this visit he was also prescribed meloxicam & Physical Therapy. States injection did not at all. He is now feeling tightness behind his knee. He has no started P.T yet. Allergies No Known Allergies Allergy (Verified 08/07/23 09:57) HPI ov- Bilateral Knee OA last 07/06/23 HPI Details Carlos is a 43 year old man who returns to discuss his bilateral knee OA. he was last seen, and injected in his right knee, on 07/06/23. He reports developing a rash on his knees following this injection, which has spread across his thighs, torso, and upper body. He was seen at a walk-in clinic on 07/10/23 for this and given a topical cream to apply and told to take Benadryl. This was not helpful for him, and he was seen in the ED on 07/14/23. They told him to discontinue hius Meloxicam and was given a Rx for Prednisone, and a referral to a Fuel Cell Technician. He says the injection did not improve his right knee pain. COUNTS INCLUDE 234 BEDS AT THE [facility] Medical History No known health problems Social History Patient Tobacco Use Status: Current everyday Tobacco user Current occupational status: employed Current occupation: [employer] Review of Systems Const All systems reviewed & are unremarkable except as noted in HPI and below Physical Exam Vital Signs: BMI result Body Mass Index 44.6 Const General: no acute distress, alert and awake Orientation/consciousness: patient oriented x3 HEENT Head: Yes normocephalic and Yes atraumatic Eyes EOM: EOMs intact bilaterally Resp Effort & Inspection: normal respiratory effort and able to speak in complete sentences Cardio Jugular venous distension: no JVD Skin General skin exam: turgor normal Rashes: no rashes Neuro General: patient oriented x3 Extrem Other: TTP medial compartment right knee Trace effusion 1+ varus instability Psych Appearance: grossly normal Affect: normal affect Attitude: cooperative Assessment & Plan Assessment & Plan (1) Arthritis of both knees: Code(s): M17.0 - Bilateral primary osteoarthritis of knee Plan: Right knee OA ( worse than left). Injection was minimally helpful. PT, VS and NSAIDs. (2) Varus deformity of knee: Code(s): M21.169 - Varus deformity, not elsewhere classified, unspecified knee Plan: Unloading brace, medial, right knee Plan Prepared for Uriah Chawla MD by Doug Smith, medical billing specialist, on 08/07/23 at 9:57 AM, EST. Orders: Orders PT Evaluation and Treatment 08/07/23 M17.0 - Bilateral primary osteoarthritis of knee, M21.169 - Varus deformity, not elsewhere classified, unspecified knee Coding Level of Care Code Est Pt Level 4 (05751) Diagnoses Arthritis of both knees M17.0 Varus deformity of knee M21.169
== END 2023-08-07 10:13 | disposition home or self-care (01) ==
PROVIDERS: Visit Provider Orthopaedic Surgery
DX: M17.0 Bilateral primary osteoarthritis of knee (principal); M21.169 Varus deformity, not elsewhere classified, unspecified knee
CPT/HCPCS: 99213

== ENCOUNTER → 2023-08-07 09:48 | Outpatient (BNVA) | payer OTHER, SELFPAY | PROVIDERS: Visit Provider Orthopaedic Surgery | DX: M17.0 Bilateral primary osteoarthritis of knee (principal); M21.169 Varus deformity, not elsewhere classified, unspecified knee | CPT/HCPCS: 99212 ==

== ENCOUNTER 2023-09-10 08:26 | Outpatient (AMB) | payer OTHER, SELFPAY ==
--- NOTE | 2023-09-10 08:34 | A.OFFVIS_ITS ---
Intake Intake Visit Reasons: Bilateral Euflexxa #1 Intake Note: Carlos is a 43 year old male who presents today for Bilateral Knee Euflexxa #1 Allergies No Known Allergies Allergy (Verified 08/07/23 09:57) HPI Bilateral Euflexxa #1 HPI Details Carlos is a 43 year old male who presents today for Bilateral Knee Euflexxa #1 PFSH Medical History No known health problems Social History Patient Tobacco Use Status: Current everyday Tobacco user Current occupational status: employed Current occupation: [employer] Physical Exam Extrem Other: sking c/d/i Office Procedures Joint Injection/Drain Joint Injection/Drain Details: Injected Euflexxa. Site was prepped using aseptic technique. Patient tolerated the procedure well. Primary Site: right knee Secondary Site: left knee Approach Used: anterolateral Coding 96675 - Large joint 27980 - Glenohumeral/Tronchanteric Bursa/Intraarticular Procedure code (CPT) selection complete Assessment & Plan Assessment & Plan (1) Arthritis of both knees: Code(s): M17.0 - Bilateral primary osteoarthritis of knee Plan: I injected bilateral knees with Euflexxa 1 of 3, he will follow up in one week for second injection of series Coding Level of Care Code Est Pt Level 2 (87685) Diagnoses Arthritis of both knees M17.0 CPT Codes Coding - 60896 Large joint: 26676 - Large joint ([id number]) Coding - Joint 7: 72723 - Glenohumeral/Tronchanteric Bursa/Intraarticular ([id number])
== END 2023-09-10 09:41 | disposition home or self-care (01) ==
PROVIDERS: PCP Nurse Practitioner Family; Visit Provider Orthopaedic Surgery
DX: M17.0 Bilateral primary osteoarthritis of knee (principal)
CPT/HCPCS: 20610; 99213

== ENCOUNTER → 2023-09-10 08:26 | Outpatient (BNVA) | payer OTHER, SELFPAY | PROVIDERS: PCP Nurse Practitioner Family; Visit Provider Orthopaedic Surgery | DX: M17.0 Bilateral primary osteoarthritis of knee (principal) | CPT/HCPCS: 20610; 99212; J7323 ==

== ENCOUNTER 2023-09-15 16:00 | Outpatient (RCR) | payer OTHER, SELFPAY ==
--- NOTE | 2023-08-21 13:43 | MHC.PT.EP ---
[facility] [place] [facility] [place] Office [place] Office [address] [phone] F: [phone] F: [phone] F: [phone] F: [phone] Physical Therapy Plan of Care Date of Evaluation: 08/19/23 Date of Surgery: n/a Diagnosis: Bilateral primary osteoarthritis of knee Varus deformity, not elsewhere classified, unspecified knee Assessment: Pt is a pleasant 43yo M who presents to PT with B knee pain, R>L. Pt presents to PT with current impairments in pain, decreased knee ROM B, decreased quad strength, soft tissue restrictions, genu varum B, impaired gait, and impaired body mechanics. Pt is limited functionally by walking on uneven surfaces, walking down hill, sharp turns, prolonged standing, walking, and squatting. He is an excellent candidate for skilled PT in order to address current impairments to facilitate return to PLOF. He is recommended to be seen 2x/week for 4 weeks and will be reassessed at that time Frequency and Duration: The patient will be seen 2x.week for 4 weeks Short Term Goals: Pt will be I with HEP to promote self management of symptoms Pt will improve knee flexion to 115 degrees B Long-Term Goals: Pt will achieve full ROM and strength of B knees to assist with standing and walking Pt will demonstrate improvements in function as evidenced by statistically significant improvement in LEFI outcome measure Treatment Plan: Modalities to reduce pain, spasms and effusion. Manual therapy to restore motion and function. Therapeutic exercise to improve strength and flexibility. Neuromuscular re-education for posture and balance. Therapeutic activities to return to functional activities of daily living. Electronically signed by: Alba Leung, PT, DPT Please sign and return to therapist. Thank you for your referral.
--- NOTE | 2024-01-04 16:09 | MHC.PT.DC ---
[facility] [place] Office [place] Office [place] Office [address] Makenzie Pinto [address] [phone] F: [phone] F: [phone] F: [phone] F: [phone] Physical Therapy Discharge Report Diagnosis: Bilateral primary osteoarthritis of knee Varus deformity, not elsewhere classified, unspecified knee Date of Surgery: n/a Date of Evaluation: 08/19/23 Date of Discharge: 01/04/24 Treatments to Date: 4 Cancellations to Date: 4 No Shows to Date: 3 Discharge Status: Visit Non-compliance Discharge Summary: Pt was seen for PT from 08/19/23-09/15/23. He has had multiple cancellations and no-show appointments since SOC. He is being D/C from skilled PT per [facility] attendance policy and visit non-compliance. Pt current level of function unknown at this time Electronically signed by: Alba Leung, PT, DPT Please sign and return to therapist. Thank you for your referral.
== END 2024-01-04 16:09 | disposition home or self-care (01) ==
LOC: HO.PT 16:00
PROVIDERS: PCP Nurse Practitioner Family; Visit Provider Orthopaedic Surgery
DX: M17.0 Bilateral primary osteoarthritis of knee (principal); M21.161 Varus deformity, not elsewhere classified, right knee; M21.162 Varus deformity, not elsewhere classified, left knee
CPT/HCPCS: 97035; 97110; 97162; 97530

== ENCOUNTER 2023-09-17 08:15 | Outpatient (AMB) | payer OTHER, SELFPAY ==
[2023-09-17 08:28] VITALS: BMI 44.6
--- NOTE | 2023-09-17 08:28 | A.OFFVIS_ITS ---
Intake Vital Signs 09/17/23 08:28 Height 5 ft 11 in Weight 320 lb BMI 44.6 Intake Visit Reasons: Bilateral Euflexxa #2 Intake Note: Carlos is a 43 year old male who presents today for Bilateral Knee Euflexxa #2 Allergies No Known Allergies Allergy (Verified 08/07/23 09:57) HPI Bilateral Euflexxa #2 HPI Details Carlos is a 43 year old male who presents today for Bilateral Knee Euflexxa #2 PFSH Medical History No known health problems Social History Patient Tobacco Use Status: Current everyday Tobacco user Current occupational status: employed Current occupation: [employer] Physical Exam Vital Signs: BMI result Body Mass Index 44.6 Extrem Other: skin c/d/i Office Procedures Joint Injection/Drain Joint Injection/Drain Details: Injected Euflexxa. Site was prepped using aseptic technique. Patient tolerated the procedure well. Primary Site: right knee Secondary Site: left knee Approach Used: anterolateral Coding - Large joint - Glenohumeral/Tronchanteric Bursa/Intraarticular Procedure code (CPT) selection complete Assessment & Plan Assessment & Plan (1) Arthritis of both knees: Code(s): M17.0 - Bilateral primary osteoarthritis of knee Plan: Bilateral knee osteoarthritis I injected both with Euflexxa round 2 He is started physical therapy I have recommended unloading braces for both knees Coding Level of Care Code Est Pt Level 2 (01433) Diagnoses Arthritis of both knees M17.0 CPT Codes Coding - Large joint: 31827 - Large joint ([id number]) Coding - Joint 7: 23865 - Glenohumeral/Tronchanteric Bursa/Intraarticular ([id number])
== END 2023-09-17 11:51 | disposition home or self-care (01) ==
PROVIDERS: PCP Nurse Practitioner Family; Visit Provider Orthopaedic Surgery
DX: M17.0 Bilateral primary osteoarthritis of knee (principal)
CPT/HCPCS: 20610

== ENCOUNTER → 2023-09-17 08:15 | Outpatient (BNVA) | payer OTHER, SELFPAY | PROVIDERS: PCP Nurse Practitioner Family; Visit Provider Orthopaedic Surgery | DX: M17.0 Bilateral primary osteoarthritis of knee (principal) | CPT/HCPCS: 20610; J7323 ==

== ENCOUNTER 2023-09-24 08:52 | Outpatient (AMB) | payer OTHER, SELFPAY ==
--- NOTE | 2023-09-24 09:15 | MHC.OFFVIS ---
Vital Signs 09/24/23 11:02 Height 5 ft 11 in Weight 320 lb BMI 44.6 Intake Visit Reasons: OV- B/L Euflexxa #3 Intake Note: Carlos is a 43 year old male who presents today for bilateral knee Euflexxa injection #3. Allergies No Known Allergies Allergy (Verified 09/24/23 11:01) HPI HPI OV- B/L Euflexxa #3: Details: 43-year-old male who presents today to the office for a bilateral knee Euflexxa gel injection #3. [facility] Medical History No known health problems Social History Patient Tobacco Use Status: Current everyday Tobacco user Current occupational status: employed Current occupation: [employer] Review of Systems Const All systems reviewed & are unremarkable except as noted in HPI and below Physical Exam Vital Signs: BMI result Body Mass Index 44.6 Extrem Other: Bilateral knee: Skin intact, no erythema or joint effusion. Tenderness along the medial joint line. Full ROM with crepitus. Negative Glenn?s. No ligamentous laxity. NVI. Office Procedures Joint Injection/Drain Joint Injection/Drain Primary Site: right knee Secondary Site: left knee Prep: site was prepped using aseptic technique, ethochloride spray was applied and injection warnings given Injected: in the joint Approach Used: anterolateral Procedure: The patient tolerated the procedure well Coding 40601 - Glenohumeral/Tronchanteric Bursa/Intraarticular Procedure code (CPT) selection complete Assessment & Plan Assessment & Plan (1) Bilateral post-traumatic osteoarthritis of knee: Code(s): M17.2 - Bilateral post-traumatic osteoarthritis of knee Category: Medical Plan We discussed options today, which include steroid injection. The patient did consent to move forward with the bilateral knee Euflexxa gel injection #3, which was tolerated well. I recommended rest, ice, and elevation and OTC anti-inflammatories as needed for discomfort. If symptoms persist over the next 6-8 weeks, they will contact the office, otherwise as needed. Patient Instructions: Scribed for Myra Martinez PA-C, by Dong Varghese medical appointment clerk, on 09/24/2023 at 9:15 AM EST. I, Myra Martinez PA-C, have personally reviewed and agree with the information entered by the scribe.
[2023-09-24 11:02] VITALS: BMI 44.6
== END 2023-09-24 09:34 | disposition home or self-care (01) ==
PROVIDERS: PCP Nurse Practitioner Family; Visit Provider Physician Assistant
DX: M17.2 Bilateral post-traumatic osteoarthritis of knee (principal)
CPT/HCPCS: 20610

== ENCOUNTER → 2023-09-24 08:52 | Outpatient (BNVA) | payer OTHER, SELFPAY | PROVIDERS: PCP Nurse Practitioner Family; Visit Provider Physician Assistant | DX: M17.0 Bilateral primary osteoarthritis of knee (principal) | CPT/HCPCS: 20610; J7323 ==

== ENCOUNTER 2024-08-16 16:45 | Outpatient (REF) | payer OTHER, SELFPAY | END 2024-08-16 16:46 | disposition home or self-care (01) | LOC: HO.HOSX 16:45 | PROVIDERS: Visit Provider Physician Assistant | DX: Z13.89 Encounter for screening for other disorder (principal) ==

== ENCOUNTER 2024-08-17 09:14 | Outpatient (AMB) | payer OTHER, SELFPAY ==
--- NOTE | 2024-08-17 09:15 | MHC.OFFVIS ---
Intake Visit Reasons: OV - Bilateral Knee OA - S/p Euflexxa Intake Note: Carlos is a 44 year old male who presents today for a follow up of his bilateral knee OA. He completed a 3 Injection series of Euflexxa on 09/24/23. Patient reports that the injection were not helpful. Allergies No Known Allergies Allergy (Verified 09/24/23 11:01) Medication List - Last Reconciled 08/17/24 by Myra Martinez PA-C amoxicillin-pot clavulanate 875-125 mg (Augmentin) 1 tab PO Q12H 10 days diphenhydramine HCl (Benadryl Allergy) 25 mg PO BEDTIME PRN ibuprofen 800 mg PO TID PRN 30 days prednisone 20 mg PO BID triamcinolone acetonide 0.025% 1 appl topical BID HPI HPI OV - Bilateral Knee OA - S/p Euflexxa: Details: Carlos is a 44 year old male who presents today for a follow up of his bilateral knee OA. He completed a 3 Injection series of Euflexxa on 09/24/23. Patient reports that the injection were not helpful. He continues to experience medial joint line pain stability. [facility] Medical History No known health problems Social History Patient Tobacco Use Status: Current everyday Tobacco user Current occupational status: employed Current occupation: [employer] Review of Systems Const All systems reviewed & are unremarkable except as noted in HPI and below Physical Exam Const General: no acute distress, alert and awake Orientation/consciousness: patient oriented x3 HEENT Head: Yes normocephalic and Yes atraumatic Eyes EOM: EOMs intact bilaterally Resp Effort & Inspection: normal respiratory effort and able to speak in complete sentences Cardio Jugular venous distension: no JVD Skin General skin exam: turgor normal Rashes: no rashes Neuro General: patient oriented x3 Extrem Other: TTP medial compartment right knee Trace effusion 1+ varus instability Psych Appearance: grossly normal Affect: normal affect Attitude: cooperative Office Procedures AMB Joint Injection/Aspiration Joint Injection/Aspiration Details: right knee asp 50 cc yellow joint fluid Primary Site: right knee Prep: site was prepped using aseptic technique, ethochloride spray was applied and injection warnings given Injected: 80 mg of, DepoMedrol, with 8 mL of, 1% plain lidocaine and in the joint Approach Used: anterolateral Procedure: The patient tolerated the procedure well and there was some relief with the local anesthesia Coding - Glenohumeral/Tronchanteric Bursa/Intraarticular Procedure code (CPT) selection complete Results Reviewed Results Reviewed: X-rays of the right knee obtained in the office today show severe medial compartment arthritis with varus deformity Assessment & Plan Assessment & Plan (1) Varus deformity of knee: Code(s): M21.169 - Varus deformity, not elsewhere classified, unspecified knee Category: Medical (2) Bilateral post-traumatic osteoarthritis of knee: Code(s): M17.2 - Bilateral post-traumatic osteoarthritis of knee Category: Medical Plan We discussed options today which include aspiration injection of the right knee which the patient tolerated well. He will continue to wear his medial nanny babysitter brace. We briefly discussed unicompartmental knee replacement on the right given his continued pain and deformity. We will have him return in [address] Chawla to discuss further. Orders: Orders XR knee LT 2V Today M25.562 - Pain in left knee XR knee RT 2V Today M25.569 - Pain in unspecified knee Coding Level of Care Code Est Pt Level 3 (63714) Complex EM visit Add On G2211 Diagnoses Varus deformity of knee M21.169 Bilateral post-traumatic osteoarthritis of knee M17.2 CPT Codes Coding - Joint 7: 36683 - Glenohumeral/Tronchanteric Bursa/Intraarticular ([id number])
== END 2024-08-17 10:36 | disposition home or self-care (01) ==
LOC: HO.HOS 09:14
PROVIDERS: PCP Nurse Practitioner Family; Visit Provider Physician Assistant
DX: M21.161 Varus deformity, not elsewhere classified, right knee (principal); M17.2 Bilateral post-traumatic osteoarthritis of knee
CPT/HCPCS: 20610; 99213

== ENCOUNTER → 2024-08-17 09:21 | Outpatient (BNV) | payer OTHER, SELFPAY | PROVIDERS: Visit Provider Radiology Diagnostic Radiology | DX: M17.0 Bilateral primary osteoarthritis of knee (principal) | CPT/HCPCS: 73560 ==

== ENCOUNTER 2024-08-17 12:42 | Outpatient (REF) | payer OTHER, SELFPAY ==
--- NOTE | ~2024-08-17 | XR_ITS ---
CLINICAL HISTORY: M25.562 - Pain in left knee [place] left knee with bilateral AP view knee standing. Comparison: CR/AR/SR - XR KNEE LT 2V - 06/12/23 21:30 EST Findings: Progression of the severe osteoarthritic changes medial knee compartment with loss of joint space subchondral sclerosis and osteophytes. There is osteophytes involving the lateral knee compartment. Normal patellofemoral alignment. Radiopaque density distal femur probably extraneous to the patient. Impression: 1. Progression of the advanced osteoarthritic changes medial knee compartment with varus angulation deformity This document has been electronically signed by: Duane Foss MD on 08/18/2024 09:29:32
--- NOTE | ~2024-08-17 | XR_ITS ---
CLINICAL HISTORY: M25.569 - Pain in unspecified knee [place] right knee and bilateral AP view knee standing Comparison: CR/SD/SR - XR KNEE RT 2V - 06/12/23 21:30 EST Findings: Limited views provided worsening of the advanced osteoarthritic changes medial knee compartment with complete loss of joint space. Subchondral sclerosis with osteophytes. Varus angulation deformity. Narrowing of the lateral patellofemoral compartment. Impression: 1. Worsening of the osteoarthritic changes medial knee compartment with varus angulation deformity This document has been electronically signed by: Duane Foss MD on 08/18/2024 09:28:26
--- OUTSIDE RECORDS SUMMARY | 2024-08-18 16:00 | XMS_ITS | Continuity of Care Document ---
Author Organization [facility] Address [address] [place] [address] Phone Care Team Providers Care State Highway Police Officer Name Role Phone Russ Corbett Unavailable Unavailable [...] Longer Active Procedures Procedure Date OFFICE/OUTPATIENT VISIT, [facility] DESTRUCT PREMALG LESION Advance Directives Directive Yes / No Effective Date File Name No Information Encounters Encounter Description Practice Location Reason(s) For Visit Diagnoses Date Provider Providers Copied on Encounter OFFICE/OUTPAT IENT VISIT, [facility] [place], [address] [place] [address], [id number], tel:[phone] [facility] acne (chief complaint) Other acnesun damaged skinsun damaged skinActinic keratosis Aric Solano. [address] [place] [address], [id number] . tel: [phone] Family History Family Member Type Diagnosis Age At Onset No Information Payers Payer name Insurance type Covered green party ID Authoriza tion(s) [employer] O [id number] Social History Type Description Quantity Date Captured [...] Mental Status Date Cognitive Assessment Orientation - [place] ed to time, place, person, situation. Patient Care Teams Name Effective Dates (start - stop) Status Members No Information
== END 2024-08-17 12:43 | disposition home or self-care (01) ==
LOC: HO.HOSX 12:42
PROVIDERS: Visit Provider Physician Assistant
DX: M21.161 Varus deformity, not elsewhere classified, right knee (principal); M17.2 Bilateral post-traumatic osteoarthritis of knee; M25.562 Pain in left knee
CPT/HCPCS: 20610; 73560; 99212; J1010; J2003

== ENCOUNTER 2024-11-14 08:22 | Outpatient (AMB) | payer OTHER, SELFPAY ==
--- NOTE | 2024-11-14 08:27 | A.OFFVIS_ITS ---
Vital Signs 11/14/24 08:33 Height 5 ft 11 in Weight 280 lb BMI 39.0 Intake Visit Reasons: OV-Right knee discuss-TKA S/p inj. 08/17/24 Intake Note: Carlos is a 44 year old male who presents today for a follow up of his Bilateral Knee OA. He was last seen with a Ta-Sandra who Administered a Euflexxa Series which provided the patient with no relief, at his most recent visit on 08/17/24 the Right knee was aspirated and Injected with cortisone. He was ordered bilateral medial unloading braces. He would like to discuss possible surgical intervention for his Right knee, Right UKA was previously discussed.Patient states that he has received the the brace. Patient states he would like to discuss TKA but really stressed that he would like to wait until May due to having the time off from work. Allergies No Known Allergies Allergy (Verified 11/14/24 08:32) HPI HPI OV-Right knee discuss-TKA S/p inj. 08/17/24: Details: Carlos is a 44 year old male who presents today for a follow up of his Bilateral Knee OA. He was last seen with a Ta-Sandra who Administered a Euflexxa Series which provided the patient with no relief, at his most recent visit on 08/17/24 the Right knee was aspirated and Injected with cortisone. He was ordered bilateral medial unloading braces. He would like to discuss possible surgical intervention for his Right knee, Right UKA was previously discussed.Patient states that he has received the the brace. Patient states he would like to discuss TKA but really stressed that he would like to wait until May due to having the time off from work. Carlos has had pain for years. He is frustrated that he can not walk or spend time with his family or work without being in severe pain. He is young but walks with a limp and has a moderate to severe bilateral varus deformity. [facility] Medical History No known health problems Social History Patient Tobacco Use Status: Current everyday Tobacco user Current occupational status: employed Current occupation: [employer] Physical Exam Vital Signs: BMI result Body Mass Index 39.0 Extrem Other: Healthy gentleman in no acute distress. Varus malalignment bilaterally with gait antalgia. 1+ varus instability bilaterally. 2+ dorsalis pedis pulse. Ten derness to palpation medial compartment. Results Reviewed Results Reviewed: I personally reviewed relevant radiographs. Severe bilateral varus deformity Assessment & Plan Assessment & Plan (1) Varus deformity of knee: Code(s): M21.169 - Varus deformity, not elsewhere classified, unspecified knee Category: Medical Plan: Varus pattern osteoarthritis bilateral knees. Right knee is more painful than the left but radiographically they are similar in appearance. He states he can walk for more than a few minutes without having to stop. Every aspect of his daily activity is compromised by his difficulty in ambulating and his pain. I had a long discussion with him. He feels he is only worsening and feels that knee replacements are the only available option to him. I do not disagree. I obviously would be ideal if he could wait but he can not and so I did discuss surgery with him. I discussed total knee replacement I explained the risks, benefits and alternatives. I clearly outlined what his expectations should be and risks discussed included infection, stiffness, need for further surgery, aseptic loosening, hardware failure as well as medical complications associated with surgery. He expressed understanding. He will discuss with our nurse navigator and follow up accordingly. In addition, he has severe varus malalignment, I recommend CT scan for custom cutting blocks given his age and deformity. (2) Arthritis of both knees: Code(s): M17.0 - Bilateral primary osteoarthritis of knee Category: Medical Plan: Orders: Orders CT knee RT wo IV con Today M17.0 - Bilateral primary osteoarthritis of knee, M21.169 - Varus deformity, not elsewhere classified, unspecified knee Coding Level of Care Code Est Pt Level 4 (17507) Diagnoses Varus deformity of knee M21.169 Arthritis of both knees M17.0
--- OUTSIDE RECORDS SUMMARY | 2024-11-14 08:28 | XMS_ITS | Continuity of Care Document ---
Author Organization [facility] Address [address] [place] [address] Phone Care Team Providers Care Electro Mechanical Technician Name Role Phone Russ Corbett Unavailable [...] Longer Active Procedures Procedure Date OFFICE/OUTPATIENT VISIT, [facility] DESTRUCT PREMALG LESION Advance Directives Directive Yes / No Effective Date File Name No Information Encounters Encounter Description Practice Location Reason(s) For Visit Diagnoses Date Provider Providers Copied on Encounter OFFICE/OUTPAT IENT VISIT, [facility], [address] [place] [address], [id number], tel:[phone] [facility] acne (chief complaint) Other acnesun damaged skinsun damaged skinActinic keratosis Aric Solano. [address] [place] [address], [id number] . tel: [phone] Family History Family Member Type Diagnosis Age At Onset No Information Payers Payer name Insurance type Covered democrat ID Authoriza tion(s) [employer] O [id number] Social History Type Description Quantity Date Captured [...] Mental Status Date Cognitive Assessment Orientation - [place] ed to time, place, person, situation. Patient Care Teams Name Effective Dates (start - stop) Status Members No Information
[2024-11-14 08:33] VITALS: BMI 39.0
== END 2024-11-14 09:04 | disposition home or self-care (01) ==
LOC: HO.HOS 08:22
PROVIDERS: PCP Nurse Practitioner Family; Visit Provider Orthopaedic Surgery
DX: M21.169 Varus deformity, not elsewhere classified, unspecified knee (principal); M17.0 Bilateral primary osteoarthritis of knee
CPT/HCPCS: 99214

== ENCOUNTER → 2024-11-14 08:22 | Outpatient (BNVA) | payer OTHER, SELFPAY | PROVIDERS: PCP Nurse Practitioner Family; Visit Provider Orthopaedic Surgery | DX: M17.0 Bilateral primary osteoarthritis of knee (principal); M21.162 Varus deformity, not elsewhere classified, left knee; M21.161 Varus deformity, not elsewhere classified, right knee | CPT/HCPCS: 99212 ==

== ENCOUNTER 2024-12-22 07:55 | Outpatient (REF) | payer OTHER, SELFPAY ==
--- OUTSIDE RECORDS SUMMARY | 2015-02-16 10:30 | XMS_ITS | Continuity of Care Document ---
Author Organization [facility] Address [address] [place] [address] Phone Care Team Providers Care Server Support Technician Name Role Phone Russ Corbett Unavailable Unavailable Allergies, Adverse Reactions, Alerts Substance Reaction Status Criticality No Known Allergies Active No Inform ation Medications Medication Instructions Dosage Effective Dates (start - stop) Status Comments Atralin 0.05 % topical gel apply a pea size amount to the entire face at night - Active Onexton 1.2 % (1 % base)-3.75 % topical gel apply to affected areas in am - Active Doryx 200 mg tablet,delayed release take 100mg twice a day - No Longer Active Procedures Procedure Date OFFICE/OUTPATIENT VISIT, [facility] DESTRUCT PREMALG LESION Advance Directives Directive Yes / No Effective Date File Name No Information Encounters Encounter Description Practice Location Reason(s) For Visit Diagnoses Date Provider Providers Copied on Encounter OFFICE/OUTPAT IENT VISIT, [facility], [address] [place] [address], [id number], tel:[phone] [facility] acne (chief complaint) Other acnesun damaged skinsun damaged skinActinic keratosis Aric Solano. [address] [place] [address], [id number] . tel: [phone] Family History Family Member Type Diagnosis Age At Onset No Information Payers Payer name Insurance type Covered constitution party ID Authoriza tion(s) [employer] O [id number] Social History Type Description Quantity Date Captured Comments Alcohol Use Details Unknown Caffeine Use Details Unknown Tobacco Use Status No Information Smoking Status No Information Sex Male Chief Complaint And Reason For Visit From encounter dated '02/16/2015 14:30'. acne (chief complaint). Description: The patient presents with acne that began 1 year ago. The problem is mild. Area(s) affected include the face and neck. The patient denies previously taken Accutane?. Aggravating factors include hot weather. The problem is not currently under any medication or treatment management. Associated symptoms include erythema and scarring. Reason For Referral Reason For Referral No Information History Of Present Illness Encounter Date Complaint History Of Prese nt Illness acne The patient pres ents with acne that began 1 year ago. The problem is mild. Area(s) affected include the face and neck. The patient denies previously taken Accutane . Aggravating factors include hot weather. The problem is not currently under any medication or treatment management. Associated symptoms include erythema and scarring. Functional Status Date Functional Assessmen t No Information Instructions Date Instruction Additional Infor mation No Information Assessments Type Assessment Date assessment Other acne assessment sun damaged skin assessment sun damaged skin assessment sun damaged skin assessment sun damaged skin assessment Actinic keratosis Mental Status Date Cognitive Assessment Orientation - [place] ed to time, place, person, situation. Patient Care Teams Name Effective Dates (start - stop) Status Members No Information
--- NOTE | ~2024-12-22 | CT_ITS ---
CLINICAL HISTORY: M21.169 - Varus deformity, not elsewhere classified, unspecified knee --- Additional Notes or Special Instructions: per [facility] protocol. CT of the right knee without IV contrast. COMPARISON: XR right knee dated 08/17/24 at 09:21 EDT FINDINGS: Cwisyuwz-hn-lxbdo right suprapatellar joint effusion. Tricompartment osteophytes. Medial joint space narrowing. Increased sclerosis along the medial compartment. Small well corticated ossification present along the anterior aspect of the knee joint at midline measuring 0.5 x 0.3 cm. Visualized portions of the proximal tibia and fibula appear intact. IMPRESSION: 1. Moderate to large right suprapatellar joint effusion. 2. Moderate to advanced tricompartment degenerative changes of the right knee most pronounced along the medial compartment. 3. Small intra-articular ossification along the anterior aspect of the knee at midline. This document has been electronically signed by: Ke Kelsey MD on 12/22/2024 16:17:40
== END 2024-12-22 07:56 | disposition home or self-care (01) ==
LOC: HO.CT 07:55
PROVIDERS: PCP Internal Medicine; Visit Provider Orthopaedic Surgery
DX: M21.169 Varus deformity, not elsewhere classified, unspecified knee (principal); M17.0 Bilateral primary osteoarthritis of knee
CPT/HCPCS: 73700

== ENCOUNTER → 2024-12-22 07:56 | Outpatient (BNV) | payer OTHER, SELFPAY | PROVIDERS: PCP Internal Medicine; Visit Provider Radiology Diagnostic Radiology | DX: M25.461 Effusion, right knee (principal); M17.11 Unilateral primary osteoarthritis, right knee; M61.561 Other ossification of muscle, right lower leg | CPT/HCPCS: 73700 ==

== ENCOUNTER 2025-03-07 07:31 | Outpatient (AMB) | payer OTHER, SELFPAY ==
[2025-03-07 07:42] VITALS: BP 124/78; PULSE 54; O2SAT 97; BMI 40.4
--- NOTE | 2025-03-07 07:42 | A.OFFPC_ITS ---
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 Location Manager Required: No Accompanied by: Self / Same As Patient Allergies No Known Allergies Allergy (Verified 03/07/25 07:54) Medication List - Last Reconciled 03/07/25 by Madelin Rand MD No Known Home Meds Tobacco use date assessed: 03/07/25 Dental Screening Dental Screen Date: 03/07/25 Did you have a dental visit in the last 12 months?: Yes Did you have a dental problem in the last 6 months where you did not have access to dental care?: No Was dental information given to patient?: Patient has dentist HPI HPI Comments History of Present Illness Details The patient is a 44-year-old male presenting with osteoarthritis and concerns about weight management. The patient reports using Tylenol as needed for knee pain associated with osteoarthritis. He has been advised by orthopedic specialists to meet twice before scheduling a knee replacement surgery, as both knees are affected, with one knee currently causing more discomfort. The patient has a history of morbid obesity with a BMI of 40. He has successfully lost 95 pounds over the past year but feels he has reached a plateau in his weight loss efforts. He exercises regularly, going to the gym almost every other day, and follows a diet that includes protein and vegetables. The patient has a minimal depression score of PHQ-9 of 2, indicating no significant depressive symptoms. He denies feeling sad and reports no significant mood disturbances. The patient has a history of appendectomy performed during childhood. He is not allergic to any medications and does not take any regular medications apart from occasional Tylenol. Social history reveals that the patient smokes about four cigarettes a day and is not ready to quit, although he is considering slowing down. He consumes alcohol occasionally, about once a month, primarily beer. His father from cancer, the type of which is unknown, and his mother is alive and healthy. [facility] Surgical History (Updated 03/07/25 @ 07:57 by Madelin Rand MD) History of appendectomy Family History (Updated 03/07/25 @ 07:58 by Madelin Rand MD) Mother No problems noted. Father Cancer Brother No problems noted. Sister No problems noted. Sister No problems noted. Sister No problems noted. Sister Breast cancer Son No problems noted. Son No problems noted. Son No problems noted. Daughter No problems noted. Social History (Updated 03/07/25 @ 07:59 by Madelin Rand MD) Housing: Apartment Alcohol intake: current Alcohol intake frequency: holidays/special occasions only Alcohol type: beer Patient Tobacco Use Status: Current everyday Tobacco user Tobacco use type: Cigarette Cigarettes Per Day: 4 e-Cigarette/Vaping Use: Never Used Second Hand Smoke Exposure: Yes service: No Current occupational status: employed Current occupation: [employer] Current occupational exposures/hazards: No Cognitive needs: No Hearing needs: No Vision needs: No Questionnaire PHQ-9 Over the last 2 weeks, how often have you been bothered by any of the following problems? 1. Little interest or pleasure in doing things: several days 2. Feeling down, depressed, or hopeless: not at all 3. Trouble falling or staying asleep, or sleeping too much: not at all 4. Feeling tired or having little energy: several days 5. Poor appetite or overeating: not at all 6. Feeling bad about yourself - or that you are a failure or have let yourself or your family down: not at all 7. Trouble concentrating on things, such as reading the newspaper or watching television: not at all 8. Moving or speaking so slowly that other people could have noticed. Or the opposite - being so fidgety or restless that you have been moving around a lot more than usual: not at all 9. Thoughts that you would be better off or of hurting yourself in some way: not at all Total score: 2 Depression Screening Interpretation: Negative Depression Screening Done: Yes 71806 - PHQ-9 Billing: Yes Source: Developed by Drs. Thor Cárdenas, Shyanne Bryant, Ezra Osborne and colleagues, with an educational leah from [employer]. Thrive Questionnaire Date Thrive assessed: 03/07/25 I am a: Patient What is your living situation today?: I have a steady place to live Within the past 12 months, did the food you bought not last and you didn't have the money to get more?: Never true Within the past 12 months, did you worry whether your food would run out before you got money to buy more?: Never true Do you have trouble paying for medicines?: No Do you have trouble getting transportation to medical appointments?: No Do you have trouble paying your heating and electricity bill?: No Do you have trouble taking care of your child, family member or friend?: No Do you have trouble with day-to-day activities such as bathing, preparing meals, shopping, managing finances, etc.?: No Are you currently unemployed and looking for a job?: No Are you interested in more education?: No Please select the resources that you would like help with: None Currently or been in a relationship where the following occur: No concerns reported THRIVE Score: 0 AUDIT C Alcohol Use Questionnaire (AUDIT-C) 1. How often do you have a drink containing alcohol?: 2-4 times a month 2. How many drinks containing alcohol do you have on a typical day when you are drinking?: 3 or 4 3. How often do you have six or more drinks on one occasion?: Never Total Score: 3 Score Reviewed/Action Taken: No ARCHANA-7 AMB Questionnaire ARCHANA-7 Date ARCHANA - 7 assessed: 03/07/25 Feeling nervous, anxious, or on edge: 0 = Not at all Not being able to stop or control worryin = Not at all Worrying too much about different things: 0 = Not at all Trouble relaxin = Not at all Being so restless that it is hard to sit still: 0 = Not at all Becoming easily annoyed or irritable: 0 = Not at all Feeling afraid as if something awful might happen: 0 = Not at all Total ARCHANA-7 score (0-4 normal; 5-9 mild; 10-14 moderate; 15-21 severe): 0 Source: Developed by Drs. Thor Cárdenas, Shyanne Bryant, Ezra Osborne and colleagues, with an educational leah from [employer]. ARCHANA-7 Assessment Billing ARCHANA-7 Assessment Tool: ARCHANA-7 Assessment 88748 Review of Systems Const All systems reviewed & are unremarkable except as noted in HPI and below Card Denies chest pain at rest, Denies chest pain with activity, Denies edema, Denies irregular heart rhythm, Denies claudication, Denies dyspnea, Denies dyspnea on exertion, Denies orthopnea, Denies paroxysmal nocturnal dyspnea and Denies slow heart rate Resp Denies cough, Denies dyspnea and Denies dyspnea on exertion Physical exam (Primary Care) Vital Signs: Last Vital Signs Pulse 54 03/07/25 07:42 BP 124/78 03/07/25 07:42 Pulse Ox 97 03/07/25 07:42 Oxygen Delivery Method Room Air 03/07/25 07:42 BMI result Body Mass Index 40.4 BMI Assessment/Plan discussion: High BMI High, discussed plan: lifestyle, weight reduction, dietary and physical activity Tobacco/Smoking Status: Tobacco use Status Tobacco use date assessed 03/07/25 03/07/25 07:50 Patient Tobacco Use Status Current everyday Tobacco 03/07/25 07:50 Tobacco use type Cigarette 03/07/25 07:50 e-Cigarette/Vaping Use Never Used 03/07/25 07:50 Are you ready to quit: No Tobacco cessation counseling provided: Yes Items discussed: Nicotine replacement and QuitWorks Relapse Prevention: discussed the importance of a supportive environment, discussed extending NRT, discussed negative mood or depression after quitting, weight gain after smoking is common and discussed dietary, exercise and/or lifestyle changes Number of minutes spent counselin CPT code: 25928 - 4-10 Minutes PHQ-9: PHQ-9 Score PHQ-9: Total score 2 03/07/25 07:50 Depression Screening Interpretation: Negative Thrive Assessment: Date of Thrive Assessment Date Thrive assessed 03/07/25 03/07/25 07:50 Currently or been in a relationship where the following occur: No concerns reported Resp Effort & Inspection: normal respiratory effort Auscultation: clear to auscultation bilaterally Cardio Jugular venous distension: no JVD Rate: regular rate Rhythm: regular rhythm Heart sounds: S1 normal heart sound present and S2 normal heart sound present Extrem General: Yes full ROM Psych Appearance: grossly normal Coding Level of Care Code New Pt Level 3 (29016) Complex EM visit Add On G2211 Diagnoses Morbid obesity with BMI of 40.0-44.9, adult E66.01; Z68.41 Arthritis of both knees M17.0 Additional Codes ARCHANA-7 Assessment Billing - ARCHANA-7 Assessment Tool: ARCHANA-7 Assessment 45004 ([id number]) PHQ-9 - 23433 - PHQ-9 Billing: Yes ([id number]) Vital Signs *Quality* - CPT code: 94131 - 4-10 Minutes ([id number]) Time Spent (min) 20 Assessment & Plan Assessment & Plan (1) Morbid obesity with BMI of 40.0-44.9, adult: Code(s): E66.01 - Morbid (severe) obesity due to excess calories; Z68.41 - Body mass index [BMI] 40.0-44.9, adult Category: Medical (2) Arthritis of both knees: Code(s): M17.0 - Bilateral primary osteoarthritis of knee Category: Medical Plan Plan 1. Osteoarthritis of knee, unspecified M17.9 The patient is advised to continue using Tylenol as needed for knee pain management. Orthopedic follow-up is planned for potential knee replacement surgery, with a referral to be made if necessary. 2. Morbid (severe) obesity due to excess calories E66.01 HCC 22 The patient is encouraged to continue weight loss efforts, with a referral to weight management services for further support. Fasting blood work is ordered to rule out any underlying conditions such as thyroid dysfunction that may be affecting weight loss.
== END 2025-03-07 08:05 | disposition home or self-care (01) ==
LOC: HO.HMCH 07:32
PROVIDERS: PCP Nurse Practitioner Family; Visit Provider Internal Medicine
DX: E66.01 Morbid (severe) obesity due to excess calories (principal); Z68.41 Body mass index [BMI] 40.0-44.9, adult; M17.0 Bilateral primary osteoarthritis of knee

== ENCOUNTER → 2025-03-07 07:31 | Outpatient (BNVA) | payer OTHER, SELFPAY | PROVIDERS: PCP Nurse Practitioner Family; Visit Provider Internal Medicine | DX: E66.01 Morbid (severe) obesity due to excess calories (principal); F17.210 Nicotine dependence, cigarettes, uncomplicated; M17.0 Bilateral primary osteoarthritis of knee; Z68.41 Body mass index [BMI] 40.0-44.9, adult | CPT/HCPCS: 96127; 99202 ==

== ENCOUNTER 2025-03-15 07:45 | Outpatient (REF) | payer OTHER, SELFPAY ==
[2025-03-15 07:56] LABS: MANUAL DIFF FLAG NO
[2025-03-15 08:32] LABS: Hematocrit 45.0 % (42.0-52.0); Hemoglobin 15.1 g/dl (14.0-18.0); Imm Gran Abs Auto 0.03 X10*3/uL (0.00-0.03); Imm Gran Pct Auto 0.4 % (0.0-0.4); Lymphocytes Absolute Auto 2.5 X10*3/uL (1.2-4.9); Mean Corpuscular HGB Conc 33.6 g/dl (31.0-36.0); Mean Corpuscular Hemoglobin 30.9 pg (27.0-33.0); Mean Corpuscular Volume 92.0 fL (80.0-98.0); NRBC Abs Auto 0.000 X10*3/uL (0.0-0.012); NRBC Pct Auto 0.0 /100WBC (0.0-0.2); Platelet Count 316 X10*3/uL (160-400); Red Blood Count 4.89 X10*6/uL (4.60-5.80); White Blood Count 8.0 X10*3/uL (4.8-10.8)
[2025-03-15 09:19] LABS: Alanine Aminotransferase 32 U/L (0-40); Albumin Level 4.7 g/dL (3.5-5.0); Alkaline Phosphatase 109 U/L (39-117); Anion Gap 11 (12-20); Aspartate Amino Transferase 29 U/L (5-37); Blood Urea Nitrogen 18 mg/dL (9-16); Calcium 10.2 mg/dL (8.4-10.2); Carbon Dioxide 29 mmol/L (22-29); Chloride 107 mmol/L (96-108); Cholesterol 146 mg/dL (<200); Estimated Glomerular Filt Rate > 60; HDL Cholesterol 36 mg/dL (>40); Potassium 5.2 mmol/L (3.3-5.1); Sodium 142 mmol/L (135-145); Total Protein 8.2 g/dL (6.5-8.0); Triglycerides 113 mg/dL (<150)
[2025-03-15 09:40] LABS: Thyroid Stimulating Hormone 1.10 uIU/mL (0.32-4.0)
[2025-03-15 09:58] LABS: Hemoglobin A1C 149.1411 umol/L
== END 2025-03-15 07:46 | disposition home or self-care (01) ==
LOC: HO.LAB 07:45
PROVIDERS: Physician Assistant; PCP Internal Medicine; Visit Provider Internal Medicine
DX: E11.9 Type 2 diabetes mellitus without complications (principal); E66.01 Morbid (severe) obesity due to excess calories; Z68.41 Body mass index [BMI] 40.0-44.9, adult
CPT/HCPCS: 36415; 80053; 80061; 83036; 84443; 85025

== ENCOUNTER 2025-05-09 08:30 | Outpatient (AMB) | payer OTHER, SELFPAY ==
--- OUTSIDE RECORDS SUMMARY | 2025-05-09 08:34 | XMS_ITS | Clinical Summary ---
Author Organization [facility] Address [address] [place] [address] Phone Care Team Providers Care Stick Roller Name Role Phone Madelin Rand MD Primary Care Provider [phone] Social History Tobacco Use Types Packs/Day Years Used Date Smoking Tobacco: Never Assessed Sex and Gender Information Value Date Recorded Sex Assigned at Not on file Legal Sex Male 9:27 AM EDT Gender Identity Not on file Sexual Orientation Not on file Plan of Treatment Upcoming Encounters Date Type Department Care Team ([facility] Contact Info) Description 05/23/2025 8:30 AM EST Office Visit Bariatric Surgery [facility] [address] [facility] [address] [place] [address] Haroon Shook MD [address] [place] [address] Health Maintenance Due Date Last Done Comments DTaP,Tdap,and Td Vaccines (1 - Tdap) 2000 Hepatitis B Vaccines (1 of 3 - 19+ 3-dose series) 2000 HPV Vaccines (1 - 3-dose SCD M series) 2008 Depression Screening 06/08/2024 COVID-19 Vaccine (1 - 2024-2 6 season) 2025 Influenza Vaccine (#1) 2025 Cholesterol Screening (Lipid Panel) 03/20/2025 HIV Screening 03/20/2025 Hepatitis C Screening 03/20/2025 Social Influencers of Health Screening 03/20/2025 RSV Immunization Adult Patie nts (1 - 1-dose 75+ series) 2056 HIB Vaccines Aged Out No longer eligi ble based on patient's age to complete this topic Hepatitis A Vaccines Aged Out No long er eligible based on patient's age to complete this topic IPV Vaccines Aged Out No longer eligi ble based on patient's age to complete this topic MMR Vaccines Aged Out No longer eligi ble based on patient's age to complete this topic Meningococcal ACWY Vaccine Aged Out N o longer eligible based on patient's age to complete this topic Meningococcal B Vaccine Aged Out No l onger eligible based on patient's age to complete this topic Pneumococcal Vaccine: Pediat rics (0 to 5 Years) and At-Risk Patients (6 to 49 Years) Aged Out No longer eligible b ased on patient's age to complete this topic RSV Immunization Patients Un maude 20 months Aged Out No longer eligible b ased on patient's age to complete this topic Varicella Vaccines Aged Out No longer eligible based on patient's age to complete this topic Insurance [facility] [employer] Care Teams Stick Roller Relationship Specialty Start Date End Date Madelin Rand MD [address] [place] [address] , [address] [facility] D[facility] FELICITAS Lanza PCP - General Internal Medicine 03/20/25
--- NOTE | 2025-05-09 08:49 | A.OFFPC_ITS ---
Vital Signs 05/09/25 08:50 Height 5 ft 11 in Weight 286 lb 4 oz BMI 39.9 BP 110/68 Blood Pressure Location Rt brachial Position Sitting Pulse 61 Pulse Source Pulse Oximeter Temp 97.3 F Temp Source Temporal Artery Scan Pulse Oximetry (%) 98 Oxygen Delivery Method Room Air Intake Visit Reasons: 06/[address] Chawla Intake Note: Patient is here for a Pre-op for Right knee replacement scheduled with Dr Chawla on 06/27/25. [employer] Required: No Director Of Solutions Architecture: Not Required per policy Accompanied by: Self / Same As Patient Allergies No Known Allergies Allergy (Verified 05/09/25 08:59) Medication List - Last Reconciled 05/09/25 by JOHN Nair [Folding Front Wheeled walker Duration: 99 days] Tobacco use date assessed: 05/09/25 Dental Screening Dental Screen Date: 03/07/25 HPI 06/[address] Chawla HPI Details The patient is a 44-year-old male presenting for preop clearance. Patient of Dr. Yoder, neil care on 03/07/2025 He is presenting for a pre-operative evaluation for an upcoming right knee surge ry. The patient reports a history of arthritis in both knees for approximately four to five years, with the right knee being more symptomatic than the left. The pain occurs with weight-bearing, which limits the ability to walk long distances and makes it difficult to use the restroom, particularly after work. The knee is not swollen, and pain is not elicited with direct pressure. The patient also experiences calf pain when walking, which is believed to be compensatory. The patient is presenting today for right knee replacement on 06/27/2025. Surgery: Total right knee replacement Surgeon/location: Dr. Chawla at [facility], [place], [place] Anesthesia: General The patient's past surgical history includes an appendectomy as an , but has no recent history of anesthesia exposure. The patient uses [id number] Tylenol with Motrin for pain and denies any other medications. The patient smokes about one pack of cigarettes every three days and does not use other substances. Health Maintenance - The patient was counseled on smoking c essation prior to surgery to reduce risks of poor healing, infection, and blood clots. - Chantix was prescribed to aid with smo rich cessation. Social History - Tobacco Use: The patient smokes one pa ck of cigarettes every three days. - Other Substance Use: The patient denie s smoking anything else. - Functional Status: The patient reports difficulty with walking long distances due to knee pain. - Assistive Devices: The patient jason sosa used a cane. [facility] Surgical History History of appendectomy Family History Mother No problems noted. Father Cancer Brother No problems noted. Sister No problems noted. Sister No problems noted. Sister No problems noted. Sister Breast cancer Son No problems noted. Son No problems noted. Son No problems noted. Daughter No problems noted. Social History (Updated 05/09/25 @ 08:55 by YADIEL Chapman) Housing: Apartment Alcohol intake: current Alcohol intake frequency: holidays/special occasions only Alcohol type: beer Patient Tobacco Use Status: Current everyday Tobacco user Tobacco use type: Cigarette Cigarette Packs Per Day: 0.5 Cigarettes Per Day: 7 e-Cigarette/Vaping Use: Currently Using Frequency of e-Cigarette/Vaping Use: Ocassical Second Hand Smoke Exposure: Yes service: No Current occupational status: employed Current occupation: [employer] Current occupational exposures/hazards: No Cognitive needs: No Hearing needs: No Vision needs: No Questionnaire Thrive Questionnaire Date Thrive assessed: 02/28/25 I am a: Patient What is your living situation today?: I have a steady place to live Within the past 12 months, did the food you bought not last and you didn't have the money to get more?: Never true Within the past 12 months, did you worry whether your food would run out before you got money to buy more?: Never true Do you have trouble paying for medicines?: No Do you have trouble getting transportation to medical appointments?: No Do you have trouble paying your heating and electricity bill?: No Do you have trouble taking care of your child, family member or friend?: No Do you have trouble with day-to-day activities such as bathing, preparing meals, shopping, managing finances, etc.?: No Are you currently unemployed and looking for a job?: No Are you interested in more education?: No Please select the resources that you would like help with: None Currently or been in a relationship where the following occur: No concerns reported THRIVE Score: 0 ARCHANA-7 AMB Questionnaire ARCHANA-7 Date ARCHANA - 7 assessed: 03/07/25 Source: Developed by Drs. Thor Cárdenas, Shyanne Bryant, Ezra Osborne and colleagues, with an educational leah from [employer]. Review of Systems Narrative Review of Systems - Musculoskeletal: Reports arthritis in both knees, worse on the right, for 4-5 years. - Reports pain with weight-bearing and compensatory calf pain when walking. - Reports frequent cracking sounds with movement. - Denies falls. - Cardiovascular: Denies chest pain or heart palpitations. - Respiratory: Denies shortness of breath. - Neurological: Denies dizziness. - Gastrointestinal: Denies abdominal pain, heartburn, or any changes in bowel habits. - Genitourinary: Reports no issues with urination. Const Denies headache(s) Eyes Denies loss of vision ENT Denies vertigo, Denies dizziness, Denies headache(s) and Denies sore throat Card Denies chest pain, Denies leg edema and Denies lightheadedness Resp Denies cough, Denies hemoptysis and Denies wheezing GI Denies abdominal pain, Denies melena, Denies constipation, Denies diarrhea and Denies vomiting Denies dysuria, Denies urinary frequency and Denies urinary urgency Musc Reports arthralgias (Bilateral knees, worse in right knee), Denies joint swelling, Denies numbness and Denies tingling Neuro Denies Abnormal speech present, Denies behavioral changes, Denies vertigo, Denies dizziness, Denies headache(s), Denies loss of vision, Denies memory loss, Denies numbness and Denies tingling Psych Denies anxiety, Denies behavioral changes, Denies depression, Denies memory loss and Denies panic attacks Margarito/Lymph Denies easy bleeding and Denies easy bruising Aller/Immun Denies wheezing Physical exam (Primary Care) Vital Signs: Last Vital Signs Temp 97.3 F 05/09/25 08:50 Pulse 61 05/09/25 08:50 BP 110/68 05/09/25 08:50 Pulse Ox 98 05/09/25 08:50 Oxygen Delivery Method Room Air 05/09/25 08:50 BMI result Body Mass Index 39.9 Tobacco/Smoking Status: Tobacco use Status Tobacco use date assessed 05/09/25 05/09/25 08:56 Patient Tobacco Use Status Current everyday Tobacco 05/09/25 08:56 Tobacco use type Cigarette 05/09/25 08:56 e-Cigarette/Vaping Use Currently Using 05/09/25 08:56 Thrive Assessment: Date of Thrive Assessment Date Thrive assessed 02/28/25 05/09/25 08:56 Currently or been in a relationship where the following occur: No concerns reported Narrative Physical Exam - Vitals: Blood pressure is normal. - Lungs: Clear to auscultation bilaterally. - Musculoskeletal: No tenderness to palpation of the calves. - Audible crepitus noted on movement. Const General: healthy appearing, no acute distress, alert and awake Nutritional Appearance: well nourished Orientation/consciousness: oriented to person, oriented to place and oriented to time HENMT Ears: TM's normal bilaterally General nose exam: Normal nasal mucous membranes and turbinates present Eyes Conjunctivae: conjunctivae normal Sclerae: sclerae normal Pupils: Equal, round and reactive pupils present Neck Neck: Yes no lymphadenopathy and Yes no JVD Thyroid: Thyroid normal Carotids: no bruits Resp Effort & Inspection: normal respiratory effort and not tachypneic Auscultation: no crackles, no rales, no rhonchi and no wheezes Cardio Rate: regular rate Rhythm: regular rhythm Heart sounds: S1 normal heart sound present, S2 normal heart sound present, no murmurs and normal S1 and S2 GI Palpation (GI): Soft to palpation, nontender, no hepatomegaly and no splenomegaly Auscultation: normal bowel sounds Skin General skin exam: no rashes or lesions noted and dry skin Neuro General: oriented to person, oriented to place and oriented to time Cranial nerves: Yes Equal, round and reactive pupils present Speech: No Abnormal speech present Gait exam (Neuro): Normal gait present Motor exam (neuro): no tremor noted Extrem Right upper extremity: full ROM Left upper extremity: full ROM Right lower extremity: full ROM and knee Details: no tenderness and no swelling; no edema Left lower extremity: full ROM and knee Details: no tenderness and no swelling; no edema Psych Mental Status: mental status grossly normal Speech and movement: Normal speech and movement present Affect: normal affect Attitude: cooperative Thought process: Normal thought process present Coding Level of Care Code Est Pt Level 4 (77575) Diagnoses Preoperative clearance Z01.818 Arthritis of both knees M17.0 Morbid obesity with BMI of 40.0-44.9, adult E66.01; Z68.41 Smoker F17.200 Time Spent (min) 34 Assessment & Plan Assessment & Plan (1) Preoperative clearance: Code(s): Z01.818 - Encounter for other preprocedural examination Category: Medical (2) Arthritis of both knees: Code(s): M17.0 - Bilateral primary osteoarthritis of knee Category: Medical (3) Morbid obesity with BMI of 40.0-44.9, adult: Code(s): E66.01 - Morbid (severe) obesity due to excess calories; Z68.41 - Body mass index [BMI] 40.0-44.9, adult Category: Medical (4) Smoker: Code(s): F17.200 - Nicotine dependence, unspecified, uncomplicated Category: Social Hx Plan Plan Patient was informed and verbally consented to the use of an ambient scribe for clinic note documentation during this visit. 1. Bilateral Knee Osteoarthritis The patient has a history of bilateral knee arthritis, which is worse in the right knee, for which surgery is planned. Pain is associated with weight-bearing and is managed with exdx-dth-vvrttmw Tylenol with Motrin. The patient was advised to discontinue Motrin (NSAIDs) 7-10 days prior to surgery to minimize bleeding risk, while continuing Tylenol is acceptable for pain control. Post- operatively, a physical therapy evaluation will determine the need for a walker versus crutches. An order for a front-wheeled walker has already been placed by the orthopedics department. 2. Pre-Operative Surgical Clearance The patient is being evaluated for pre-operative clearance for an upcoming right knee surgery. The plan includes obtaining pre-operative blood work, an EKG, and a urinalysis, all of which must be completed within 30 days of the surgical date. Final surgical clearance is pending review of these test results. 3. Tobacco Use Disorder The patient smokes approximately one pack of cigarettes every three days. The patient was extensively counseled on the increased perioperative risks associated with smoking, including impaired healing, blood clots, and infections. Chantix was prescribed to aid in smoking cessation and reduce these surgical risks. 4. Obesity Discussed lifestyle modification to aid in weight loss that could assist with bilateral knee pain control as well Discussion Notes I conducted a pre-operative evaluation for the patient ahead of an upcoming right knee surgery. I advised the patient on the necessity of pre-operative testing, including blood work and an EKG, to be completed within 30 days of the procedure. I addressed the patient's tobacco use, emphasizing the significant risks it poses for post-surgical complications such as poor wound healing, infections, and thromboembolic events like blood clots and stroke. To mitigate these risks, I prescribed Chantix to support smoking cessation efforts. I instructed the patient to stop taking Motrin 7-10 days before surgery due to its effect on platelets and informed the patient that Tylenol is a safe alternative for pain management. We also discussed post-operative mobility, and I clarified that a physical therapist will determine whether crutches or a walker is more appropriate after evaluating the patient. I ordered labs, an EKG, and a urinalysis and informed the patient that final surgical clearance is contingent on these results. Patient Instructions - Please go to the lab to have your blood work, EKG (a heart test), and a urine sample collected today. - These tests must be done within 30 days of your surgery date. - Stop taking Motrin, Advil, or similar anti-inflammatory drugs (NSAIDs) 7 to 10 days before your surgery. - You may take Tylenol (acetaminophen) for pain instead. - It is very important to stop or significantly cut down on smoking before your surgery. - Smoking can cause problems with healing, infections, and blood clots. - I have sent a prescription for Chantix to your pharmacy to help you stop smoking. - Please pick it up and start taking it as directed on the package. - After your surgery, a physical therapist will work with you to see if you need crutches or a walker. - Your final clearance for surgery depends on the results of the tests you are having today. Orders: Orders Hemoglobin A1c Today Z01.818 - Encounter for other preprocedural examination Prothrombin Time INR Today Z01.818 - Encounter for other preprocedural examin ation UA CC w/rflx Micro + Cult Today Z01.818 - Encounter for other preprocedural examination Complete Blood Count Auto Diff Today Z01.818 - Encounter for other preprocedural examination Comprehensive Met. Panel Today Z01.818 - Encounter for other preprocedural examination TSH reflex Free T4 Today Z01.818 - Encounter for other preprocedural examination ECG 12 lead EKG Today Z01.818 - Encounter for other preprocedural examination Medications: New varenicline tartrate (Chantix Starting Month Box) PO PER PKG DIR 53 ea 0RF nicotine dependance
[2025-05-09 08:50] VITALS: BP 110/68; PULSE 61; TEMP 36.3; O2SAT 98; BMI 39.9
== END 2025-05-09 09:28 | disposition home or self-care (01) ==
LOC: HO.HMCH 08:31
PROVIDERS: PCP Internal Medicine
DX: Z01.818 Encounter for other preprocedural examination (principal); M17.0 Bilateral primary osteoarthritis of knee; E66.01 Morbid (severe) obesity due to excess calories; Z68.41 Body mass index [BMI] 40.0-44.9, adult; F17.200 Nicotine dependence, unspecified, uncomplicated

== ENCOUNTER → 2025-05-09 08:30 | Outpatient (REF) | payer OTHER, SELFPAY ==
--- NOTE | 2025-05-09 09:46 | ECG_ITS ---
Test Reason : PREOP Blood Pressure : */* mmHG Vent. Rate : 50 BPM Atrial Rate : 50 BPM P-R Int : 164 ms QRS Dur : 112 ms QT Int : 460 ms P-R-T Axes : 27 6 28 degrees QTcB Int : 419 ms Sinus bradycardia Otherwise normal ECG No previous ECGs available Referred By: Quinton Gann Electronically Signed By: ARACELIS MEDRANO
[2025-05-09 10:05] LABS: MANUAL DIFF FLAG NO
[2025-05-09 10:26] LABS: Hematocrit 41.5 % (42.0-52.0); Hemoglobin 14.0 g/dl (14.0-18.0); Imm Gran Abs Auto 0.02 X10*3/uL (0.00-0.03); Imm Gran Pct Auto 0.3 % (0.0-0.4); Lymphocytes Absolute Auto 2.4 X10*3/uL (1.2-4.9); Mean Corpuscular HGB Conc 33.7 g/dl (31.0-36.0); Mean Corpuscular Hemoglobin 30.9 pg (27.0-33.0); Mean Corpuscular Volume 91.6 fL (80.0-98.0); NRBC Abs Auto 0.000 X10*3/uL (0.0-0.012); NRBC Pct Auto 0.0 /100WBC (0.0-0.2); Platelet Count 275 X10*3/uL (160-400); Red Blood Count 4.53 X10*6/uL (4.60-5.80); White Blood Count 7.3 X10*3/uL (4.8-10.8)
[2025-05-09 10:29] LABS: INTERNATIONAL NORM RATIO 1.0 (0.9-1.1); Prothrombin Time 12.2 SEC (11.2-13.5)
[2025-05-09 10:53] LABS: Alanine Aminotransferase 23 U/L (0-40); Albumin Level 4.4 g/dL (3.5-5.0); Alkaline Phosphatase 96 U/L (39-117); Anion Gap 10 (12-20); Aspartate Amino Transferase 31 U/L (5-37); Blood Urea Nitrogen 14 mg/dL (9-16); Calcium 9.6 mg/dL (8.4-10.2); Carbon Dioxide 27 mmol/L (22-29); Chloride 108 mmol/L (96-108); Estimated Glomerular Filt Rate > 60; Potassium 4.1 mmol/L (3.3-5.1); Sodium 141 mmol/L (135-145); Total Protein 7.4 g/dL (6.5-8.0)
[2025-05-09 11:21] LABS: Appearance Urine Clear; Glucose Urine UA Negative (Negative); PH 6.0 (5.0-9.0); Specific Gravity - Urine >= 1.030 (1.005-1.025)
== END ==
LOC: HO.CARD 08:30
PROVIDERS: PCP Internal Medicine
DX: Z01.818 Encounter for other preprocedural examination (principal); M17.0 Bilateral primary osteoarthritis of knee; E66.01 Morbid (severe) obesity due to excess calories; F17.210 Nicotine dependence, cigarettes, uncomplicated; Z68.39 Body mass index [BMI] 39.0-39.9, adult
CPT/HCPCS: 36415; 80053; 81003; 83036; 84443; 85025; 85610; 93005; 99212

== ENCOUNTER → 2025-05-09 09:46 | Outpatient (BNV) | payer OTHER, SELFPAY | PROVIDERS: PCP Internal Medicine; Visit Provider Internal Medicine | DX: Z01.818 Encounter for other preprocedural examination (principal); R00.1 Bradycardia, unspecified | CPT/HCPCS: 93010 ==

== ENCOUNTER → 2025-05-25 10:24 | Outpatient (BNVA) | payer OTHER, SELFPAY | PROVIDERS: PCP Internal Medicine | DX: Z01.818 Encounter for other preprocedural examination (principal) ==